=== PATIENT | female | born 1975 | race Caucasian/White ===

== ENCOUNTER 2018-10-21 11:44 | Emergency (ER) | payer BC, SELFPAY ==
[2018-10-21 11:49] VITALS: BP 156/92; PULSE 81; RESP 20; TEMP 36.4; O2SAT 96
--- NOTE | 2018-10-21 12:06 | W.ED.GENAD ---
Discharge Plan Disposition Patient Disposition: HOME Condition: Good Discharge Details Chief Complaint: Sorethroat Clinical Impression: Acute pharyngitis Primary Care Provider: Jessica Morrissey ED Provider: Radu Sterling Home Meds and New Rx's Prescriptions: No Action prednisone 20 MG tablet 40 mg PO DAILY Qty: 10 RF: 0 omeprazole 40 MG capsule,delayed release(DR/EC) 40 mg PO BID Qty: 60 RF: 5 amoxicillin 500 MG tablet 1,000 mg PO Q12H Qty: 40 RF: 0 benzonatate 100 MG capsule 100 - 200 mg PO TID PRN30 Days Qty: 30 RF: 0 alprazolam 0.5 MG tablet,disintegrating 0.5 mg PO HS Qty: 30 RF: 5 Discharge Instructions Instructions: Pharyngitis (ED) Stand Alone Forms: Work Release Referrals: [facility] Emergency Dept. [Outside] - Return if symptoms worsen Discharge Data Discharge Date/Time-TO BE ENTERED AT DEPARTURE: 10/21/18 12:15 Medical Decision Making Negative strep test. Pt advised to get plenty of rest and fluids. Will provide work note for a couple days while culture pending. We discussed abscess not visualized on exam. If her symptoms worsen she agreed to return. Otherwise she will f/u with pcp as previously planned. HPI General Date/Time Provider Initiated Documentation: 10/21/18 11:56. Limitations to Documentation: no limitations. Information obtained by: patient. History of Present Illness 43 year old F presents to the emergency department with the chief complaint of sore throat, HPI Narrative: 43 y/o female here with c/o sore throat and concerned for strep throat. For the last few days she has experienced sore throat that worsens at night. Slight runny nose. 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 She is concerned she may have strep and may expose others. She tells me it hurts to swallow but is able to swallow. Related Data Home Medications Medication Instructions Recorded Confirmed prednisone 40 mg PO DAILY #10 tab-cap 01/23/18 omeprazole 40 mg PO BID #60 tab-cap 02/27/18 amoxicillin 1,000 mg PO Q12H #40 tab-cap 03/01/18 alprazolam 0.5 mg PO HS #30 tab-cap 06/28/18 benzonatate 100 - 200 mg PO TID PRN 30 Days 06/28/18 #30 tab-cap Previous Rx's Medication Instructions Recorded prednisone 40 mg PO DAILY #10 tab-cap 01/23/18 omeprazole 40 mg PO BID #60 tab-cap 02/27/18 amoxicillin 1,000 mg PO Q12H #40 tab-cap 03/01/18 alprazolam 0.5 mg PO HS #30 tab-cap 06/28/18 Allergies Allergy/AdvReac Type Severity Reaction Status Date / Time No Known Drug Allergies Allergy Unverified 03/26/17 13:40 General Stated Complaint: Sorethroat BALBIR: 4 Review of Systems Eyes Reports system reviewed and no additional complaints, except as docu ENT Reports nasal discharge and Reports sore throat Cardiovascular Reports system reviewed and no additional complaints, except as docu Respiratory Reports system reviewed and no additional complaints, except as docu Gastrointestinal Reports system reviewed and no additional complaints, except as docu Integumentary/Breasts Reports system reviewed and no additional complaints, except as docu PFSH Abnormal uterine bleeding Hypothyroid Family History Mother No problems noted. Father No problems noted. Maternal Aunt Neoplasm Diagnostic Laproscopy (~1988) Excision, Lipoma Ligation of fallopian tube (~2002) Family History Mother No problems noted. Father No problems noted. Maternal Aunt Neoplasm Medical History Abnormal uterine bleeding Hypothyroid Social History Smoking/Tobacco Use Status: Never Surgical History Diagnostic Laproscopy (~1988) Excision, Lipoma Ligation of fallopian tube (~2002) Social History Smoking/Tobacco Use Status: Never Exam Const General: cooperative, healthy appearing and comfortable Nutritional Appearance: average body habitus Orientation: alert, awake and oriented x3 HENMT Head: atraumatic Ears: hearing grossly normal bilaterally, external ears normal and TM's normal bilaterally General nose exam: external nose normal and nares normal Mouth: oral mucosae normal, lip normal, tongue normal, moist mucous membranes, no drooling and no trismus Throat: abnormal tonsil (enlarged) on the right, posterior oropharynx abnormal and postnasal drainage Eyes General: appearance normal, both eyes and all related structures Neck Neck: normal visual inspection, full ROM and lymphadenopathy (right) Resp Effort & Inspection: normal respiratory effort Auscultation: clear to auscultation bilaterally Cardio Rate: regular rate Rhythm: regular rhythm Heart Sounds: no murmurs Extrem General: full ROM and normal capillary refill Course Vital Signs Temperature 36.4 C L 10/21/18 11:49 Pulse 81 10/21/18 11:49 Respiratory Rate 20 10/21/18 11:49 Blood Pressure 156/92 H 10/21/18 11:49 Pulse Oximetry 96 10/21/18 11:49 Temperature 36.4 C L 10/21/18 11:49 Temperature Source Temporal Artery Scan 10/21/18 11:49 Pulse 81 10/21/18 11:49 Respiratory Rate 20 10/21/18 11:49 Respiratory Effort Non-Labored 10/21/18 11:49 Blood Pressure 156/92 H 10/21/18 11:49 Blood Pressure Position Sitting 10/21/18 11:49 Pulse Oximetry 96 10/21/18 11:49 Oxygen Delivery Method Room Air 10/21/18 11:49 Oxygen Flow Rate 0 10/21/18 11:49 Pain Level 7 10/21/18 11:49 Lab/Test Results Lab/Test Results: POC Strep Test-[facility](Rapid) Start: 10/21/18 12:05 Freq: Status: Active Protocol: Document 10/21/18 12:05 CDG (Rec: 10/21/18 12:06 CD [id number]) Strep test-[facility](Rapid)-POC POC-Strep test-[facility] (Rapid) Negative POC-Strep test-[facility] (Rapid) Negative
--- NOTE | 2018-10-21 12:09 | ED.GENADUL_ITS ---
Discharge Plan Disposition Patient Disposition: HOME Condition: Good Discharge Details Chief Complaint: Sorethroat Clinical Impression: Acute pharyngitis Primary Care Provider: Jessica Morrissey ED Provider: Radu Sterling Home Meds and New Rx's Prescriptions: No Action prednisone 20 MG tablet 40 mg PO DAILY Qty: 10 RF: 0 omeprazole 40 MG capsule,delayed release(DR/EC) 40 mg PO BID Qty: 60 RF: 5 amoxicillin 500 MG tablet 1,000 mg PO Q12H Qty: 40 RF: 0 benzonatate 100 MG capsule 100 - 200 mg PO TID PRN30 Days Qty: 30 RF: 0 alprazolam 0.5 MG tablet,disintegrating 0.5 mg PO HS Qty: 30 RF: 5 Discharge Instructions Instructions: Pharyngitis (ED) Stand Alone Forms: Work Release Referrals: [facility] Emergency Dept. [Outside] - Return if symptoms worsen Discharge Data Discharge Date/Time-TO BE ENTERED AT DEPARTURE: 10/21/18 12:15 Medical Decision Making Negative strep test. Pt advised to get plenty of rest and fluids. Will provide work note for a couple days while culture pending. We discussed abscess not visualized on exam. If her symptoms worsen she agreed to return. Otherwise she will f/u with pcp as previously planned. HPI General Date/Time Provider Initiated Documentation: 10/21/18 11:56 . Limitations to Documentation: no limitations . Information obtained by: patient . History of Present Illness 43 year old F presents to the emergency department with the chief complaint of sore throat, HPI Narrative: 43 y/o female here with c/o sore throat and concerned for strep throat. For the last few days she has experienced sore throat that worsens at night. Slight runny nose. 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 She is concerned she may have strep and may expose others. She tells me it hurts to swallow but is able to swallow. Related Data Home Medications Medication Instructions Recorded Confirmed prednisone 40 mg PO DAILY #10 tab-cap 01/23/18 omeprazole 40 mg PO BID #60 tab-cap 02/27/18 amoxicillin 1,000 mg PO Q12H #40 tab-cap 03/01/18 alprazolam 0.5 mg PO HS #30 tab-cap 06/28/18 benzonatate 100 - 200 mg PO TID PRN 30 Days 06/28/18 #30 tab-cap Previous Rx's Medication Instructions Recorded prednisone 40 mg PO DAILY #10 tab-cap 01/23/18 omeprazole 40 mg PO BID #60 tab-cap 02/27/18 amoxicillin 1,000 mg PO Q12H #40 tab-cap 03/01/18 alprazolam 0.5 mg PO HS #30 tab-cap 06/28/18 Allergies Allergy/AdvReac Type Severity Reaction Status Date / Time No Known Drug Allergies Allergy Unverified 03/26/17 13:40 General Stated Complaint: Sorethroat BALBIR: 4 Review of Systems Eyes Reports system reviewed and no additional complaints, except as docu ENT Reports nasal discharge and Reports sore throat Cardiovascular Reports system reviewed and no additional complaints, except as docu Respiratory Reports system reviewed and no additional complaints, except as docu Gastrointestinal Reports system reviewed and no additional complaints, except as docu Integumentary/Breasts Reports system reviewed and no additional complaints, except as docu PFSH Abnormal uterine bleeding Hypothyroid Family History Mother No problems noted. Father No problems noted. Maternal Aunt Neoplasm Diagnostic Laproscopy (~1988) Excision, Lipoma Ligation of fallopian tube (~2002) Family History Mother No problems noted. Father No problems noted. Maternal Aunt Neoplasm Medical History Abnormal uterine bleeding Hypothyroid Social History Smoking/Tobacco Use Status: Never Surgical History Diagnostic Laproscopy (~1988) Excision, Lipoma Ligation of fallopian tube (~2002) Social History Smoking/Tobacco Use Status: Never Exam Const General: cooperative, healthy appearing and comfortable Nutritional Appearance: average body habitus Orientation: alert, awake and oriented x3 HENMT Head: atraumatic Ears: hearing grossly normal bilaterally, external ears normal and TM's normal bilaterally General nose exam: external nose normal and nares normal Mouth: oral mucosae normal, lip normal, tongue normal, moist mucous membranes, no drooling and no trismus Throat: abnormal tonsil (enlarged) on the right, posterior oropharynx abnormal and postnasal drainage Eyes General: appearance normal, both eyes and all related structures Neck Neck: normal visual inspection, full ROM and lymphadenopathy (right) Resp Effort & Inspection: normal respiratory effort Auscultation: clear to auscultation bilaterally Cardio Rate: regular rate Rhythm: regular rhythm Heart Sounds: no murmurs Extrem General: full ROM and normal capillary refill Course Vital Signs Temperature 36.4 C L 10/21/18 11:49 Pulse 81 10/21/18 11:49 Respiratory Rate 20 10/21/18 11:49 Blood Pressure 156/92 H 10/21/18 11:49 Pulse Oximetry 96 10/21/18 11:49 Temperature 36.4 C L 10/21/18 11:49 Temperature Source Temporal Artery Scan 10/21/18 11:49 Pulse 81 10/21/18 11:49 Respiratory Rate 20 10/21/18 11:49 Respiratory Effort Non-Labored 10/21/18 11:49 Blood Pressure 156/92 H 10/21/18 11:49 Blood Pressure Position Sitting 10/21/18 11:49 Pulse Oximetry 96 10/21/18 11:49 Oxygen Delivery Method Room Air 10/21/18 11:49 Oxygen Flow Rate 0 10/21/18 11:49 Pain Level 7 10/21/18 11:49 Lab/Test Results Lab/Test Results: POC Strep Test-[facility](Rapid) Start: 10/21/18 12: 05 Freq: Status: Active Protocol: Document 10/21/18 12:05 CDG (Rec: 10/21/18 12:06 CD [id number]) Strep test-[facility](Rapid)-POC POC-Strep test-[facility] (Rapid) Negative POC-Strep test-[facility] (Rapid) Negative
[2018-10-21 12:15] VITALS: BP 156/92; PULSE 81; RESP 20; TEMP 36.4; O2SAT 96
== END 2018-10-21 12:15 | disposition home or self-care (01) ==
PROVIDERS: Emergency Provider Nurse Practitioner Family; PCP Nurse Practitioner Gerontology
DX: J02.9 Acute pharyngitis, unspecified (principal)
CPT/HCPCS: 87880; 99282; 87081

== ENCOUNTER 2018-10-23 04:59 | Emergency (ER) | payer BC, SELFPAY ==
[2018-10-23 05:01] VITALS: BP 128/93; PULSE 87; RESP 16; TEMP 36.4; O2SAT 97
--- NOTE | 2018-10-23 05:11 | ED.GENADUL_ITS ---
Discharge Plan Disposition Patient Disposition: HOME Condition: Stable Discharge Details Chief Complaint: Sorethroat Clinical Impression: Uvulitis, Pharyngitis Primary Care Provider: Jessica Morrissey ED Provider: Betsy Barlow Home Meds and New Rx's Prescriptions: New azithromycin [Zithromax] 500 mg tablet 500 mg PO DAILY 5 Days Qty: 5 RF: 0 Continue ibuprofen 800 mg Tablet 800 mg PO TID PRNRF: 0 alprazolam 0.5 MG tablet,disintegrating 0.5 mg PO HS PRNRF: 0 Discharge Instructions Instructions: Uvulitis (ED) Additional Instructions: Your strep test was negative again today. This only tests for one particular type of strep throat. You do have a swollen uvula in the back of your throat. Drink plenty of fluids and get plenty of rest. Continue to alternate Tylenol and Motrin as needed and directed for pain. Mainly drink cold drinks and cool or soft foods such as ice cream, popsicles. Avoid hot foods or chips or crackers. If you no improvement in symptoms of the next 2-3 days, you may start the antibiotics. Follow-up with your primary care doctor in 1 week for reevaluation. Return immediately to the emergency department any worsening or new concerning symptoms. Discharge Data Discharge Date/Time-TO BE ENTERED AT DEPARTURE: 10/23/18 05:24 Discharge Physician: Betsy Barlow Medical Decision Making 43yo F with a complaint of sore throat for the past few days, seen here in the ED 2 days ago for same complaint and had negative strep test who presents with persistent sore throat. Pain with swallowing liquids and solids. No fever, neck pain or headache. Patient has an edematous uvula with mild erythema. Uvula is midline. No tonsillar edema, erythema, exudates, abscess. No submandibular swelling, no drooling, no trismus. Lungs clear to auscultation. Repeat rapid strep test negative. Discussed with patient that uvulitis is likely viral and recommend continued fluids, rest. Due to pain with swallowing we will give a dose of Decadron. Patient also given a prescription for Zithromax if symptoms do not improve or worsen over the next 2-3 days. She is instructed to follow-up with primary care doctor and return here with any worsening symptoms. HPI General Mode of arrival: ambulatory . Date/Time Provider Initiated Documentation: 10/23/18 05:10 . Limitations to Documentation: no limitations . Information obtained by: patient . HPI Narrative: Pt is a 43yo F who presents to the ED w/ a c/o sore throat for the past few days. Patient was seen here on Sunday and had a negative strep test and was discharged home. Patient states her throat is still sore and she feels like she is having difficulty with swallowing liquids and solids due to pain. She denies any known fever. She has been taking Motrin and Tylenol for pain. She denies any posterior neck pain or headache. Related Data Home Medications Medication Instructions Recorded Confirmed alprazolam 0.5 mg PO HS PRN 10/23/18 10/23/18 azithromycin [Zithromax] 500 mg PO DAILY 5 Days #5 tab 10/23/18 ibuprofen 800 mg PO TID PRN 10/23/18 10/23/18 Previous Rx's Medication Instructions Recorded azithromycin [Zithromax] 500 mg PO DAILY 5 Days #5 tab 10/23/18 Allergies Allergy/AdvReac Type Severity Reaction Status Date / Time No Known Drug Allergies Allergy Unverified 10/23/18 05:05 General Stated Complaint: Sorethroat BALBIR: 4 Review of Systems Review of Systems All systems reviewed & are unremarkable except as noted in HPI and below Constitutional Reports as per HPI, Denies chills and Denies fever(s) Eyes Denies blurry vision ENT Denies dizziness, Reports sore throat and Denies throat swelling Cardiovascular Denies chest pain and Denies dyspnea Respiratory Denies dyspnea Gastrointestinal Denies abdominal pain, Denies diarrhea and Denies vomiting Genitourinary Denies hematuria and Denies dysuria Musculoskeletal Denies back pain and Denies numbness Integumentary/Breasts Denies lesions and Denies rash Neurologic Denies dizziness and Denies numbness Allergic/Immunologic Denies throat swelling PFSH Abnormal uterine bleeding Hypothyroid Family History Mother No problems noted. Father No problems noted. Maternal Aunt Neoplasm History of bilateral tubal ligation (Acute) Diagnostic Laproscopy (~1988) Excision, Lipoma Ligation of fallopian tube (~2002) Family History Mother No problems noted. Father No problems noted. Maternal Aunt Neoplasm Medical History Abnormal uterine bleeding Hypothyroid Social History Smoking/Tobacco Use Status: Never Surgical History Diagnostic Laproscopy (~1988) Excision, Lipoma Ligation of fallopian tube (~2002) Social History Smoking/Tobacco Use Status: Never Exam Const General: cooperative, healthy appearing and no acute distress HENMT Head: normal to inspection Ears: hearing grossly normal bilaterally General nose exam: external nose normal Face and sinus: normal facial exam and sinuses nontender Mouth: oral mucosae normal Teeth and gingiva: dentition normal Throat: uvula midline, uvular edema and other (No tonsillar edema or exudates. Minimal posterior pharyngeal erythema.) Eyes General: appearance normal, both eyes and all related structures Pupils: PERRL EOM: EOM intact bilaterally Neck Neck: normal visual inspection and No submandibular swelling Lymphatic: no lymphadenopathy noted Chest Chest: normal inspection of the chest and no tenderness Resp Effort & Inspection: normal respiratory effort and able to speak in complete sentences Auscultation: clear to auscultation bilaterally Cardio Rate: regular rate Rhythm: regular rhythm Skin General skin exam: no rashes or lesions noted Neuro General: alert, awake and oriented x3 Cognition: normal cognition Speech: speech normal Motor: muscle tone normal throughout Sensory Exam: no sensory deficits noted Extrem General: normal to inspection and full ROM Psych Appearance: grossly normal Mental Status: mental status grossly normal Speech and Movement: speech and movement normal Affect: normal affect Course Vital Signs Temperature 97.5 F L 10/23/18 05:01 Pulse 87 10/23/18 05:01 Respiratory Rate 16 10/23/18 05:01 Blood Pressure 128/93 H 10/23/18 05:01 Pulse Oximetry 97 10/23/18 05:01 Temperature 97.5 F L 10/23/18 05:01 Temperature Source Skin 10/23/18 05:01 Pulse 87 10/23/18 05:01 Respiratory Rate 16 10/23/18 05:01 Respiratory Effort Non-Labored 10/23/18 05:03 Blood Pressure 128/93 H 10/23/18 05:01 Blood Pressure Position Sitting 10/23/18 05:01 Pulse Oximetry 97 10/23/18 05:01 Oxygen Delivery Method Room Air 10/23/18 05:01 Oxygen Flow Rate 0 10/23/18 05:01 Pain Level 10 10/23/18 05:01
[2018-10-23] MEDS: Dexamethasone 10 MG/ML VIAL PO (05:21)
== END 2018-10-23 05:24 | disposition home or self-care (01) ==
LOC: ER 05:28
PROVIDERS: Emergency Provider Physician Assistant; PCP Nurse Practitioner Gerontology
DX: K12.2 Cellulitis and abscess of mouth (principal); J02.9 Acute pharyngitis, unspecified
CPT/HCPCS: 99283; 87081; J1100

== ENCOUNTER 2018-10-30 20:17 | Emergency (ER) | payer BC, SELFPAY ==
[2018-10-30 20:20] VITALS: BP 156/111; PULSE 102; RESP 16; TEMP 36.8; O2SAT 97
--- NOTE | 2018-10-30 21:06 | DI.RAD_ITS ---
SYMPTOM/DIAGNOSIS: COUGH PA AND LATERAL CHEST: The lungs are free of infiltrate. There is no effusion or pneumothorax. The heart is unremarkable. No acute bony abnormality is seen. SUMMARY: No evidence of acute cardiopulmonary disease.
--- NOTE | 2018-10-30 21:06 | DI.CT_ITS ---
SYMPTOMS/DIAGNOSIS: HEADACHE, ? MENINGITIS CRANIAL CT: This is a noncontrast enhanced study. There is no evidence of an intra/extra- axial hemorrhage. There is no evidence of edema, or a mass or a fluid collection. There is no evidence of a skull fracture. There is no evidence of sinusitis or mastoid effusion. No suspicious soft tissue lesions are seen. SUMMARY: There is no acute intracranial abnormality.
--- NOTE | 2018-10-30 21:17 | ED.GENADUL_ITS ---
Discharge Plan Disposition Patient Disposition: HOME Condition: Good Discharge Details Chief Complaint: Nk/Back Pain Clinical Impression: Muscle spasms of neck, Cough Primary Care Provider: Javi Centeno ED Provider: Wally Burger Meds and New Rx's Prescriptions: New methocarbamol 500 mg tablet 1,000 mg PO QID Qty: 30 RF: 0 hydrocodone-homatropine 5-1.5 mg tablet 1 tab PO Q6H PRN (Reason: cough) Qty: 14 RF: 0 Continued ibuprofen 800 mg Tablet 800 mg PO TID PRNRF: 0 alprazolam 0.5 MG tablet,disintegrating 0.5 mg PO HS PRNRF: 0 No Action hydrocodone-homatropine 5-1.5 mg tablet 1 tab PO Q6H MDD 4 tabs PRN (Reason: cough) Qty: 14 RF: 0 albuterol sulfate 90 mcg/actuation HFA aerosol inhaler 2 puff IH Q6H PRN (Reason: shortness of breath or wheezing) Qty: 6.7 RF: 0 Aerochamber Plus Z Stat spacer .ROUTE .MEDSUPPLY Qty: 1 RF: 0 amoxicillin-pot clavulanate [Augmentin] 875-125 mg tablet 1 tab PO BID Qty: 20 RF: 0 fluconazole [Diflucan] 150 mg tablet 150 mg PO ONCE Qty: 1 RF: 0 Discharge Instructions Additional Instructions: Your workup tonight does not show evidence of intracranial bleeding, meningitis, infection in the neck. Please do not take your alprazolam for now. We will put you on a muscle relaxant as well as a cough medication both of which could make you sleepy. Please continue the ibuprofen. Follow-up with primary care preferably tomorrow before the holidays. Return to ED for any neurologic changes, worsening pain, fever, difficulty breathing, other concerns. Referrals: Javi Centeno [Primary Care Provider] - Discharge Data Discharge Date/Time-TO BE ENTERED AT DEPARTURE: 10/31/18 06:35 Medical Decision Making <Alex Arambula NP - Last Filed: 11/02/18 00:26> Patient presenting to the emergency department for chief complaint of sore throat and cough along with cold symptoms for the last 10 days but over the last 3 days she has developed significant neck pain and stiffness. Yesterday evening she reports an episode of some visual aura followed by a headache that started an hour later. Patient denies any injury or trauma. Patient does state low- grade fever that is been persistent throughout her illness around 99-100. Patient has been seen in the emergency department multiple times and by primary care and told it was a viral illness. Patient has significant nuchal rigidity otherwise no other neurological symptoms are noted, patient does have some tonsillary erythema and hypertrophy otherwise no significant exudates, no lymphadenopathy, clear lung sounds, no rash, no cardiac rub or bruit otherwise unremarkable examination. Plan to check labs including blood cultures, chest x- ray and head CT and consideration of lumbar puncture if [place] and influenza are negative. High concern for meningitis given nuchal rigidity and cold symptoms for 10 days with report of low-grade fever. Pending results patient given morphine. Review of labs shows leukocytosis, mild hyponatremia, otherwise nondiagnostic labs. CBC does show some leukocytosis but otherwise stable. CT imaging and chest imaging shows no acute findings. Patient did consent to having lumbar puncture performed and consent was signed. Both myself and Dr. Burger attempted lumbar puncture and were unable to successfully obtain spinal fluid so anesthesia was consulted for assistance. Patient tolerated attempts appropriately pending anesthesia. Patient was given 2.5 mg diazepam to help with muscle relaxation. Pending anesthesia, lumbar puncture, and results care patient was handed over to Dr. Burger for review of results, disposition, and treatment as needed. <Wally Burger MD - Last Filed: 10/31/18 06:20> Patient initially seen by nurse practitioner Tyesha. Workup ensued and included chest x-ray, head CT, laboratory studies. The mono and influenza screens were negative. Laboratory studies unremarkable. Head CT negative. Chest x-ray negative. Lumbar puncture was attempted both by SHONNA Arambula as well as myself without success. Anesthesia was called and asked to perform LP. Anesthesia able to successfully obtain CSF. This was sent to the lab. Morphine had helped the patient initially. Valium was given as well for some muscle relaxation. Did not seem to work as well as the morphine so another dose of mor phine was given. CSF has normal glucose and protein. Cell count with 3 white cells, 1 red cell, no xanthochromia. This is a negative tap. Patient continues to have significant neck pain. Symptoms started a week ago. Initially sore throat. Throat is not as sore now. She has worsening cough but has already been on Zithromax. She is not having difficulty breathing. She does have posterior neck pain. I elected to CT her neck with IV contrast as she was still having significant pain. CT neck unremarkable other than degenerative change of the spine mildly prominent thyroid. At this point patient will be discharged home. We will start her on Robaxin as a muscle relaxer. Will continue ibuprofen for anti- inflammatory component. We will give Hycodan for cough which will also likely help with pain. We will have her follow-up with primary care preferably tomorrow if possible before the holidays to see how she is doing. Return to emergency department if worsening pain, difficulty breathing, neurologic changes, fever. Lab Data Lab results reviewed: Yes I reviewed the patient's lab results. HPI <Alex Arambula NP - Last Filed: 11/02/18 00:26> General Mode of arrival: ambulatory . Date/Time Provider Initiated Documentation: 10/30/18 20:43 . Limitations to Documentation: no limitations . Information obtained by: patient, RN notes reviewed and old records reviewed . History of Present Illness 43 year old F presents to the emergency department with the chief complaint of Cold-like symptoms, stiff neck, described as severe, with intensity rated at 10. Quality is described as aching and sharp, and is localized to the head and neck. Patient started experiencing this day(s) (10) and it has been constant. No relieving factors improve symptom(s), No exacerbating factors reported . Patient did receive the following treatments prior to arrival, NSAID Related Data Home Medications Medication Instructions Recorded Confirmed alprazolam 0.5 mg PO HS PRN 10/23/18 10/30/18 ibuprofen 800 mg PO TID PRN 10/23/18 10/30/18 hydrocodone-homatropine 1 tab PO Q6H PRN #14 tab 10/31/18 methocarbamol 1,000 mg PO QID #30 tab 10/31/18 albuterol sulfate HFA 90 2 puff IH Q6H PRN #6.7 gm 11/01/18 11/01/18 mcg/actuation aerosol inhaler amoxicillin 875 mg-potassium 1 tab PO BID #20 tab 11/01/18 11/01/18 clavulanate 125 mg tablet fluconazole 150 mg tablet 150 mg PO ONCE #1 tab 11/01/18 11/01/18 hydrocodone-homatropine 5 mg-1.5 1 tab PO Q6H PRN #14 tab MDD 4 tabs 11/01/18 11/01/18 mg tablet inhalational spacing device #1 each 11/01/18 11/01/18 Previous Rx's Medication Instructions Recorded hydrocodone-homatropine 1 tab PO Q6H PRN #14 tab 10/31/18 methocarbamol 1,000 mg PO QID #30 tab 10/31/18 albuterol sulfate HFA 90 2 puff IH Q6H PRN #6.7 gm 11/01/18 mcg/actuation aerosol inhaler amoxicillin 875 mg-potassium 1 tab PO BID #20 tab 11/01/18 clavulanate 125 mg tablet fluconazole 150 mg tablet 150 mg PO ONCE #1 tab 11/01/18 hydrocodone-homatropine 5 mg-1.5 1 tab PO Q6H PRN #14 tab MDD 4 tabs 11/01/18 mg tablet inhalational spacing device #1 each 11/01/18 Allergies Allergy/AdvReac Type Severity Reaction Status Date / Time No Known Drug Allergies Allergy Unverified 10/30/18 20:34 General Stated Complaint: Nk/Back Pain BALBIR: 3 Review of Systems <Alex Arambula NP - Last Filed: 11/02/18 00:26> Constitutional Reports chills, Reports fever(s), Reports headache(s) and Reports malaise Eyes Denies blurry vision and Reports seeing flashes (Now result) ENT Reports as per HPI, Denies dizziness, Denies otalgia, Reports headache(s), Reports nasal congestion, Reports neck pain, Reports sore throat and Denies throat swelling Cardiovascular Denies chest pain, Denies syncope and Denies dyspnea Respiratory Reports cough and Denies dyspnea Gastrointestinal Denies abdominal pain, Reports nausea and Denies vomiting Musculoskeletal Denies joint swelling and Reports neck pain Integumentary/Breasts Denies rash Neurologic Denies confusion, Denies dizziness, Denies syncope, Reports headache(s) and D enies seizure-like activity Psychiatric Denies confusion Allergic/Immunologic Denies throat swelling PFSH <Alex Arambula NP - Last Filed: 11/02/18 00:26> Medical History Abnormal uterine bleeding Hypothyroid Surgical History History of bilateral tubal ligation (Acute) Diagnostic Laproscopy (~1988) Excision, Lipoma Ligation of fallopian tube (~2002) Family History Mother No problems noted. Father No problems noted. Maternal Aunt Neoplasm Social History Smoking/Tobacco Use Status: Never Exam <Alex Arambula NP - Last Filed: 11/02/18 00:26> Const General: cooperative, comfortable and no acute distress Orientation: alert and awake HENMT Head: normal to inspection, normocephalic and atraumatic Ears: hearing grossly normal bilaterally and TM's normal bilaterally General nose exam: external nose normal Face and sinus: normal facial exam Mouth: oral mucosae normal, no drooling, no muffled voice and no trismus Throat: uvula midline and abnormal tonsil bilaterally erythema Neck Neck: normal visual inspection, full ROM, no lymphadenopathy, no meningeal signs, trachea midline and supple Resp Effort & Inspection: normal respiratory effort, able to speak in complete sentences and cough Quality of cough: dry Auscultation: clear to auscultation bilaterally Cardio Rate: regular rate Rhythm: regular rhythm Heart Sounds: S1 normal, S2 normal, normal S1 and S2, no click, no gallops, no murmurs and no rubs Skin General skin exam: no rashes or lesions noted and dry skin (warm) Neuro General: alert, awake, oriented x3, gait normal and moves all extremities Cognition: normal cognition Speech: speech normal Course <Alex Arambula NP - Last Filed: 11/02/18 00:26> Vital Signs Temperature 36.8 C 10/30/18 20:20 Pulse 102 H 10/30/18 20:20 Respiratory Rate 16 10/30/18 20:20 Blood Pressure 156/111 H 10/30/18 20:20 Pulse Oximetry 97 10/30/18 20:20 Temperature 36.8 C 10/30/18 20:20 Temperature Source Skin 10/30/18 20:20 Pulse 102 H 10/30/18 20:20 Respiratory Rate 16 10/30/18 20:20 Blood Pressure 156/111 H 10/30/18 20:20 Blood Pressure Position Sitting 10/30/18 20:20 Pulse Oximetry 97 10/30/18 20:20 Oxygen Delivery Method Room Air 10/30/18 20:20 Oxygen Flow Rate 0 10/30/18 20:20 Pain Level 10 10/30/18 20:20 Lab/Test Results Lab/Test Results: 10/30/18 21:06 Blood Blood Culture - Pending 10/30/18 21:06 Blood Blood Culture - Pending
[2018-10-30] MEDS: MORPHine 10 MG/ML VIAL 4 MG IVP (21:47)
[2018-10-30] MEDS: Normal Saline 1,000 ML 1000 ML IV (21:48)
[2018-10-30] MEDS: Ondansetron 4 MG/2 ML VIAL IVP (21:48)
[2018-10-30 22:27] LABS: ALT 40 U/L (12-78); AST 25 U/L (15-37); Alkaline Phosphatase 72 U/L (46-116); Anion Gap 12.1 mmol/L (3-11); BUN 9 mg/dL (7-18); Bilirubin, Total 0.8 mg/dL (0.2-1.0); CO2 25.9 mmol/L (21.0-32.0); CREATININE 0.58 mg/dL (0.55-1.02); Calcium 9.6 mg/dL (8.5-10.1); Chloride 97 mmol/L (98-107); Glucose 109 mg/dL (70-100); Potassium 3.9 mmol/L (3.5-5.1); Sodium 135 mmol/L (136-145); Total Protein 8.2 g/dL (6.4-8.2)
[2018-10-30 22:31] VITALS: BP 132/75; PULSE 92; RESP 16; TEMP 37.1; O2SAT 92
[2018-10-30 22:33] LABS: Mono Screening Negative (Negative)
[2018-10-30 22:41] LABS: Abs Immature Grans 0.07 k/cumm (0.0-0.09); Absolute Basophil Count 0.04 k/cumm (0.0-0.2); Absolute Eosinophil Count 0.14 k/cumm (0.0-0.7); Absolute Lymphocyte Count 3.24 k/cumm (1.2-3.4); Absolute Neutrophil Count 8.26 k/cumm (1.2-6.7); Basophils % 0.3; Eosinophils % 1.1; HCT 44.5 % (36.0-46.0); HGB 15.4 g/dL (12.0-15.5); Immature Grans % 0.5; Mean Corp. HGB Concentration 34.6 g/dL (32.0-36.0); Mean Corpuscular Hemoglobin 31.6 pg (27.0-33.0); Mean Corpuscular Volume 91.2 fL (80-95); Mean Platelet Volume 10.6 fL (8.0-11.0); Monocytes % 9.3; Neutrophils % 63.8; Platelet Count 277 x1000/uL (130-400); RBC 4.88 m/cumm (4.00-5.20); RBC Distribution Width 12.4 % (11.7-14.6); White Blood Cell Count 12.94 k/cumm (4.4-10.8)
--- NOTE | 2018-10-30 22:59 | DI.VRAD_ITS ---
EXAM: CT Head Without Contrast EXAM DATE/TIME: 10/30/2018 9:10 PM CLINICAL HISTORY: 43 years old, female; Pain; Headache; Headache not specified; Patient HX: ? Meningitis, sore neck TECHNIQUE: Axial computed tomography images of the head/brain without contrast. Coronal and sagittal reformatted images were created and reviewed. COMPARISON: No relevant prior studies available. FINDINGS: Brain: No hemorrhage. No significant white matter disease. No edema. Ventricles: No ventriculomegaly. Bones/joints: No acute fracture. Sinuses: No acute sinusitis. Mastoid air cells: No mastoid effusion. Soft tissues: No suspicious lesions. IMPRESSION: No acute intracranial findings. Dictated and Authenticated by: Alivia Calloway MD. Ordering:ALESSANDRO Johnson MD
--- NOTE | 2018-10-30 22:59 | DI.VRAD_ITS ---
EXAM: XR Chest, 2 Views EXAM DATE/TIME: 10/30/2018 9:10 PM CLINICAL HISTORY: 43 years old, female; Signs and symptoms; Cough TECHNIQUE: XR of the chest, 2 views. COMPARISON: CR CHEST 2 VIEWS PA,LAT 02/28/2018 11:10 AM FINDINGS: Lungs: No consolidation. Pleural space: No pleural effusion. No pneumothorax. Heart/Mediastinum: No cardiomegaly. Bones/joints: No acute fracture. IMPRESSION: No acute cardiopulmonary pathology. Dictated and Authenticated by: Alivia Calloway MD. Ordering:ALESSANDRO Johnson MD
[2018-10-31 00:12] LABS: Bilirubin Negative (Negative); Blood Negative (Negative); Clarity Clear; Glucose Negative (Negative); Ketones 15 mg/dL (Negative); Leukocyte Esterase Negative (Negative); Nitrite Negative (Negative); Urobilinogen 0.2 EU/dL (Up TO 0.2); pH 6.5 (5-8)
[2018-10-31 02:48] LABS: Glucose (CSF) 68 mg/dL (40-70); Total Protein (CSF) 34 mg/dL (15-45)
[2018-10-31 03:19] LABS: Tube # 4
[2018-10-31 03:20] LABS: Clarity Clear; Xanthochromia Absent
[2018-10-31 03:21] LABS: RBC 1 /mm3 (0-5); WBC 3 /mm3 (0-5)
--- NOTE | 2018-10-31 04:40 | DI.CT_ITS ---
SYMPTOM/DIAGNOSIS: SEVEE NECK NECK CT: The study was carried out according to the usual protocol with intravenous administration of 100 cc Omnipaque 350. The nasopharynx is unremarkable. There is no evidence of a mass or inflammation. The oral pharynx is unremarkable. The hypopharynx is normal. The larynx and trachea are unremarkable. The retropharyngeal space is unremarkable. The submandibular and parotid glands appear intact. SUMMARY: There is mild prominence of the thyroid. No mass is seen. The soft tissues are unremarkable with no evidence of swelling. Posterior musculature and soft tissues are relatively unremarkable without evidence of obvious inflammatory changes or a fluid collection or mass. There are no acute vascular findings on this CT examination.
--- NOTE | 2018-10-31 05:16 | DI.VRAD_ITS ---
EXAM: CT Neck With Contrast EXAM DATE/TIME: 10/31/2018 4:42 AM CLINICAL HISTORY: 43 years old, female; Pain; Neck pain; Patient HX: Severe posterior neck pain TECHNIQUE: Axial computed tomography images of the neck with intravenous contrast. All CT scans at this facility use at least one of these dose optimization techniques: automated exposure control; mA and/or kV adjustment per patient size (includes targeted exams where dose is matched to clinical indication); or iterative reconstruction. Coronal and sagittal reformatted images were created and reviewed. CONTRAST: 100 ml of Omnipaque 350 administered intravenously. COMPARISON: No relevant prior studies available. FINDINGS: Nasopharynx: Unremarkable. No mass or inflammation. Oropharynx: Unremarkable. No significant tonsillar enlargement. No peritonsillar abscess. Hypopharynx: Unremarkable. Larynx: Unremarkable. Normal epiglottis. Trachea: Unremarkable. Retropharyngeal space: Unremarkable. Submandibular/Parotid glands: Unremarkable. Glands are normal in size. Thyroid: Thyroid mildly prominent in size without discrete mass. Homogeneous enhancement. No calcifications. Bones/joints: Advanced degenerative disc disease C5- 6 and to lesser extent C4-5. Minimal central canal narrowing without critical central stenosis. No severe neural foraminal encroachment demonstrated. No fracture or subluxation. Soft tissues: Unremarkable. No significant soft tissue swelling. Posterior musculature and soft tissues relatively unremarkable without obvious inflammation, fluid collection or mass. Vasculature: No acute findings. No significant stenosis or occlusions. Lymph nodes: Unremarkable. No lymphadenopathy. Shotty non-pathologically enlarged level II and III lymph nodes on each side. Lung apices: Minimal dependent atelectasis. IMPRESSION: 1. Relatively unremarkable CT soft tissue neck with contrast. 2. Nonemergent findings as described above. Dictated and Authenticated by: Grant Reyes MD. Ordering:FRANCHESKA Lo MD
[2018-10-31] MEDS: Omnipaque 350 MG/ML 100 ML BTL IJ (06:15)
[2018-10-31] MEDS: Methocarbamol 500 MG TAB 1000 MG PO (06:29)
[2018-10-31 07:04] VITALS: BP 132/75; PULSE 92; RESP 16; TEMP 37.1; O2SAT 92
[2018-10-31 08:27] LABS: Differential CSF: NOT PERFORMED
== END 2018-10-31 06:35 | disposition home or self-care (01) ==
PROVIDERS: Nurse Practitioner Family; Emergency Provider Emergency Medicine; PCP Family Medicine
DX: M62.838 Other muscle spasm (principal); R05 Cough; R51 Headache
CPT/HCPCS: 36415; 62270; 70491; 80053; 81025; 82945; 87040; 87449; 89050; 89051; 96361; 96374; 96375; 96376; 99285; 70450; 71046; 81003; 84157; 85025; 86308; 87070; 87205; J2270; J2405; J3490

== ENCOUNTER 2020-09-24 09:29 | Outpatient (CLI) | payer BC, SELFPAY ==
[2020-09-28 23:59] LABS: Patient Race White; SARS-CoV-2 RNA Undetected (Undetected); SARS-CoV-2 Specimen Source Nasal
== END 2020-09-24 09:49 ==
PROVIDERS: PCP Nurse Practitioner Family; Visit Provider Nurse Practitioner Family
DX: Z11.59 Encounter for screening for other viral diseases (principal)
CPT/HCPCS: U0003

== ENCOUNTER 2021-01-10 16:36 | Outpatient (REF) | payer BC, SELFPAY ==
[2021-01-12 12:25] LABS: COVID-19 RT-PCR UVMMC Result Positive (Negative)
== END 2021-01-10 16:37 | disposition home or self-care (01) ==
LOC: LBN 16:36
PROVIDERS: PCP Nurse Practitioner Family; Visit Provider Family Medicine
DX: Z20.822 Contact with and (suspected) exposure to COVID-19 (principal); R05 Cough
CPT/HCPCS: U0003

== ENCOUNTER 2021-01-14 05:33 | Outpatient (CLI) | payer BC, SELFPAY ==
[2021-01-14 13:22] VITALS: BP 157/104; PULSE 82; RESP 20; TEMP 36.1; O2SAT 95
[2021-01-14] MEDS: Normal Saline 500 ML 30 ML IV (13:37)
[2021-01-14] MEDS: Normal Saline Flush 10 ML SYR IVP (13:37)
[2021-01-14 13:45] VITALS: BP 138/88; PULSE 73; RESP 22; TEMP 36.7; O2SAT 95
[2021-01-14 14:07] VITALS: BP 129/84; PULSE 75; RESP 20; TEMP 36.5; O2SAT 95
[2021-01-14 14:41] VITALS: BP 129/80; PULSE 73; RESP 20; TEMP 36.5; O2SAT 94
[2021-01-14 15:06] VITALS: BP 137/87; PULSE 72; RESP 20; TEMP 36.5; O2SAT 97
== END 2021-01-14 05:34 | disposition home or self-care (01) ==
LOC: INF 05:33
PROVIDERS: PCP Nurse Practitioner Family; Visit Provider Family Medicine
DX: U07.1 COVID-19 (principal)
CPT/HCPCS: 96365

== ENCOUNTER 2021-03-18 01:45 | Outpatient (CLI) | payer BC, SELFPAY ==
[2021-03-19 15:22] LABS: COVID-19 RT-PCR UVMMC Result Positive (Negative)
== END 2021-03-18 01:46 | disposition home or self-care (01) ==
LOC: LBO 01:46
PROVIDERS: PCP Nurse Practitioner Family; Visit Provider Family Medicine
DX: Z20.822 Contact with and (suspected) exposure to COVID-19 (principal)
CPT/HCPCS: U0003

== ENCOUNTER 2023-01-15 13:45 | Emergency (ER) | payer BC, SELFPAY ==
[2023-01-15 13:51] VITALS: BP 169/103; PULSE 88; RESP 18; TEMP 36.7; O2SAT 96
[2023-01-15 14:12] LABS: Bilirubin Negative (Negative); Blood Moderate (Negative); Clarity Sl Cloudy (Clear); Glucose Negative (Negative); Ketones Negative (Negative); Leukocyte Esterase Trace (Negative); Nitrite Positive (Negative); Specific Gravity 1.025 (1.005-1.025); Urobilinogen 0.2 mg/dL (Up to 0.2)
[2023-01-15 14:19] LABS: Bacteria Many HPF (Negative); C & S Indicated? Yes; Casts Negative LPF (Negative); Crystals Negative HPF (Negative); Epithelial Cells Few HPF (Negative); Mucus Negative (Negative)
--- NOTE | 2023-01-15 15:07 | ED.GENADUL_ITS ---
Discharge Plan Disposition Patient Disposition: Home Condition: Stable Discharge Details Clinical Impression: UTI (urinary tract infection) Primary Care Provider: Sera Marcelo ED Provider: Betsy Barlow Home Meds and New Rx's Prescriptions: Continued ibuprofen 800 mg tablet 800 mg PO TID PRN (Reason: back pain) Qty: 120 4RF Discharge Instructions Instructions: Urinary Tract Infection in Women (ED) Additional Instructions: Your urine sample appears consistent with a urinary tract infection. A prescription for antibiotics has been sent electronically to your pharmacy to take as directed until finished. Drink plenty of fluids and get plenty of rest. Alternate tylenol and motrin as needed and directed for pain. You can continue taking ytgl-owe-ouchiqk urinary pain medications such as Azo or phenazopyridine as needed and directed for pain. Follow-up with your primary care doctor in 1 week for reevaluation as needed and for recheck of your blood pressure as it was noted to be high today. Return to the emergency department with any worsening or new concerning symptoms such as persistent fevers, persistent vomiting, worsening pain or any other concerns. Discharge Data Discharge Date/Time-TO BE ENTERED AT DEPARTURE: 01/15/23 15:16 Discharge Physician: Betsy Barlow Medical Decision Making 47-year-old female presents with 7 days of dysuria, urinary frequency and urgency. She did also admit to occasional nausea, pelvic and lower back pain. Patient appears well and nontoxic. Her blood pressure is quite hypertensive at 169/103. She is afebrile. Urine sample obtained prior to my assessment and does appear consistent with UTI. Urine test negative. Discussed with patient that her symptoms of occasional nausea and lower back pain and the duration of her symptoms make her more at risk for possible pyelonephritis which often is treated with a longer course of antibiotics in addition to screening labs and imaging. Patient states she would prefer to start antibiotics for a urinary tract infection and then be reevaluated her primary care doctor. She is declining any labs or imaging at this time. Discussed with patient that as she looks well and is nontoxic-appearing without fever, this is a reasonable plan at this time but to return here immediately if she develops any worsening or new concerning symptoms. A recheck of her blood pressure revealed 170/100. Patient is advised to call her primary care doctor tomorrow for reevaluation within the next week and for recheck of her blood pressure. Advised patient to return here immediately for reevaluation if she has any worsening or new concerning symptoms for consideration for additional work-up including lab work and imaging at that time if indicated. We will send a prescription for Keflex electronically to her pharmacy. Usual and customary return precautions given prior to discharge. Medical Records Medical records reviewed: Yes I reviewed the patient's medical records. Lab Data Lab results reviewed: Yes I reviewed the patient's lab results. Labs: Urine test negative. 01/15/23 14:00 Urine - Reflex from Ua Urine Culture - Pending Laboratory Tests Range/Units 01/15/23 14:00 Urine Color (Yellow) Yellow Urine Clarity (Clear) Sl Cloudy Urine pH (5-8) 7.0 Ur Specific [place] (1.005-1.025) 1.025 Urine Protein (Negative) mg/dL Negative Urine Ketones (Negative) mg/dL Negative Urine Blood (Negative) Moderate H Urine Nitrite (Negative) Positive H Urine Bilirubin (Negative) Negative Urine Urobilinogen (Up to 0.2) mg/dL 0.2 Ur Leukocyte Esterase (Negative) Trace H Urine RBC (0-2) HPF 10-20 H Urine WBC (0-5) HPF 10-20 H Ur Epithelial Cells (Negative) HPF Few Urine Crystals (Negative) HPF Negative Urine Bacteria (Negative) HPF Many Urine Casts (Negative) LPF Negative Urine Mucus (Negative) Negative Ur Culture Indicated? Yes Urine Glucose (Negative) mg/dL Negative HPI General Mode of arrival: ambulatory . Date/Time Provider Initiated Documentation: 01/15/23 14:51 . Limitations to Documentation: no limitations . Information obtained by: patient . HPI Narrative: Patient is a 47-year-old female who presents with dysuria, frequency, urgency for the past 7 days. She states her symptoms feel consistent with a urinary tract infection which she has had in the past. She states she has been taking [id number] phenazopyridine with temporary relief but states overall her symptoms are not improving. She does admit to occasional nausea but denies any vomiting. She denies any known fevers. She states she does have occasional lower pelvic and back pain. Patient states she has not taken any recent antibiotics. Related Data Home Medications Medication Instructions Recorded Confirmed ibuprofen 800 mg tablet 800 mg PO TID PRN back pain #120 03/18/20 01/15/23 tabs Previous Rx's Medication Instructions Recorded ibuprofen 800 mg tablet 800 mg PO TID PRN back pain #120 03/18/20 tabs Allergies Allergy/AdvReac Type Severity Reaction Status Date / Time No Known Drug Allergies Allergy Unverified 01/15/23 13:54 General Stated Complaint: Urinary BALBIR: 4 Review of Systems All systems reviewed & are unremarkable except as noted in HPI and below Constitutional Constitutional: Reports as per HPI, Denies chills and Denies fever(s) Eyes Eyes: Denies blurry vision ENT Ears, Nose, Mouth, and Throat: Denies dizziness, Denies sore throat and Denies throat swelling Cardiovascular Cardiovascular: Denies chest pain and Denies dyspnea Respiratory Respiratory: Denies cough and Denies dyspnea Gastrointestinal Gastrointestinal: Denies abdominal pain, Denies diarrhea, Reports nausea and Denies vomiting Genitourinary Genitourinary: Denies hematuria, Reports dysuria, Reports pelvic pain and Reports urinary urgency Comments: Urinary frequency Musculoskeletal Musculoskeletal: Denies back pain and Denies numbness Integumentary/Breasts Skin/Breast: Denies lesions and Denies rash Neurologic Neurologic: Denies dizziness, Denies localized weakness and Denies numbness Allergic/Immunologic Allergic/Immunologic: Denies throat swelling PFSH All Active Problems (Updated 01/15/23 @ 15:08 by Betsy Barlow DO) UTI (urinary tract infection) (Acute) COVID-19 virus infection (Acute) Positive PCRs 01/19/2021 and 03/18/2021 Abnormal uterine bleeding (Chronic) Mirena IUD placed 09/26/17 Insomnia (Acute) Medical History (Updated 01/15/23 @ 15:08 by Betsy Barlow DO) Generalized anxiety disorder Surgical History History of bilateral tubal ligation (~2002) S/P excision of lipoma (06/18/17) Path confirmed lipoma to right buttock Status post hysteroscopy (09/26/17) With endometrial sampling, polypectomy Family History Mother No problems noted. Father No problems noted. Maternal Aunt Neoplasm BREAST Social History Smoking/Tobacco Use Status: Never Smoking risk assessment performed?: Yes Alcohol Intake: never Drug use: Never Substance use type: does not use Do you feel safe in your relationship?: Yes Exam Const General: cooperative, healthy appearing and no acute distress Orientation: alert, awake and oriented x3 HENMT Head: normal to inspection Mouth: oral mucosae normal Eyes General: appearance normal, both eyes and all related structures Neck Neck: normal visual inspection Resp Effort & Inspection: normal respiratory effort and able to speak in complete sentences Auscultation: clear to auscultation bilaterally Cardio Rate: regular rate Rhythm: regular rhythm GI Inspection: obesity Palpation: soft, no guarding and nontender Auscultation: hypoactive bowel sounds Back/Spine/Pelvis Back: no CVA tenderness Skin General skin exam: no rashes or lesions noted Neuro General: patient alert, patient awake and patient oriented x3 Motor: muscle tone normal throughout Extrem General: normal to inspection and full ROM Psych Appearance: grossly normal Affect: normal affect Course Vital Signs Vital signs: Vital Signs Temperature 98.1 F 01/15/23 13:51 Pulse 88 01/15/23 13:51 Respiratory Rate 18 01/15/23 13:51 Blood Pressure 169/103 H 01/15/23 13:51 Pulse Oximetry 96 01/15/23 13:51 Temperature 98.1 F 01/15/23 13:51 Temperature Source Oral 01/15/23 13:51 Pulse 88 01/15/23 13:51 Respiratory Rate 18 01/15/23 13:51 Respiratory Effort Normal 01/15/23 13:55 Blood Pressure 169/103 H 01/15/23 13:51 Blood Pressure Position Sitting 01/15/23 13:51 Pulse Oximetry 96 01/15/23 13:51 Oxygen Delivery Method Room Air 01/15/23 13:51 Oxygen Flow Rate 0 01/15/23 13:51 Pain Level 3 01/15/23 13:51 Lab/Test Results Lab/Test Results: 01/15/23 14:00 Urine - Reflex from Ua Urine Culture - Pending Laboratory Tests Range/Units 01/15/23 14:00 Urine Color (Yellow) Yellow Urine Clarity (Clear) Sl Cloudy Urine pH (5-8) 7.0 Ur Specific [place] (1.005-1.025) 1.025 Urine Protein (Negative) mg/dL Negative Urine Ketones (Negative) mg/dL Negative Urine Blood (Negative) Moderate H Urine Nitrite (Negative) Positive H Urine Bilirubin (Negative) Negative Urine Urobilinogen (Up to 0.2) mg/dL 0.2 Ur Leukocyte Esterase (Negative) Trace H Urine RBC (0-2) HPF 10-20 H Urine WBC (0-5) HPF 10-20 H Ur Epithelial Cells (Negative) HPF Few Urine Crystals (Negative) HPF Negative Urine Bacteria (Negative) HPF Many Urine Casts (Negative) LPF Negative Urine Mucus (Negative) Negative Ur Culture Indicated? Yes Urine Glucose (Negative) mg/dL Negative
[2023-01-15 15:15] VITALS: BP 177/100; PULSE 79; RESP 20; O2SAT 98
== END 2023-01-15 15:16 | disposition home or self-care (01) ==
PROVIDERS: Student in an Organized Health Care Education/Training Program; Emergency Provider Physician Assistant; PCP Nurse Practitioner Family
DX: N39.0 Urinary tract infection, site not specified (principal); B96.1 Klebsiella pneumoniae [K. pneumoniae] as the cause of diseases classified elsewhere
CPT/HCPCS: 87077; 99283; 81003; 81015; 87086; 87186

== ENCOUNTER 2023-06-04 13:29 | Outpatient (REF) | payer BC, SELFPAY ==
--- NOTE | 2023-06-04 11:30 | PAPFT_PTH ---
PATIENT: Carlton Renteria LOC: [facility] #:[id number] AGE/SX: 47/F ROOM: RE06/04/[address]: AYAD Capone : 1975 BED: DIS: 06/04/2023 SPEC #: [id number] RECD: 06/05/23 12:50 STATUS: YAEL PATEL #: [id number] SOFI: 06/04/23 11:[address]: Sera Marcelo DEPT: [facility] Cytology RECD BY: Anay Graves Tissues: 1 - CX/ENDOCX FOR PAP SMEARS Procedures: PAP THIN PREP/UVM Screening HPV DNA PROBE Comments: [id number]
== END 2023-06-04 13:30 | disposition home or self-care (01) ==
LOC: LBN 13:29
PROVIDERS: PCP Nurse Practitioner Family; Visit Provider Nurse Practitioner Family
DX: Z12.4 Encounter for screening for malignant neoplasm of cervix (principal); Z11.51 Encounter for screening for human papillomavirus (HPV); Z87.410 Personal history of cervical dysplasia
CPT/HCPCS: 88142; 87624

== ENCOUNTER 2023-06-05 04:26 | Outpatient (CLI) | payer BC, SELFPAY ==
[2023-06-05 13:00] LABS: Abs Immature Grans 0.03 10^3/uL (0.0-0.06); Absolute Basophil Count 0.07 10^3/uL (0.0-0.2); Absolute Lymphocyte Count 2.57 10^3/uL (1.2-3.4); Absolute Monocyte Count 0.91 10^3/uL (0.1-0.8); Absolute Neutrophil Count 5.94 10^3/uL (1.2-6.7); Basophils % 0.7; HCT 45.4 % (36.0-46.0); HGB 14.8 g/dL (11.2-15.7); Immature Grans % 0.3; Lymphocytes % 26.7; MCH 29.7 pg (27.0-33.0); MCHC 32.6 % (32.0-36.0); MCV 91 fL (80-95); MPV 10.9 fL (8.0-11.0); Monocytes % 9.5; Neutrophils % 61.8; Platelet Count 212 10^3/uL (130-400); RBC 4.98 10^6/uL (3.93-5.22); RDW 14.1 % (11.7-14.6); RDW-SD 47.1 fL; WBC 9.62 10^3/uL (4.4-10.8)
[2023-06-05 13:18] LABS: Hemoglobin A1C 5.5 % (<5.7)
[2023-06-05 13:27] LABS: ALT 57 U/L (14-59); AST 29 U/L (15-37); Albumin 3.9 g/dL (3.4-5.0); Alkaline Phosphatase 72 U/L (46-116); Anion Gap 4.9 mmol/L (3-11); BUN 12 mg/dL (7-18); Bilirubin, Total 0.7 mg/dL (0.2-1.0); CO2 30.1 mmol/L (21.0-32.0); CREATININE 0.9 mg/dL (0.55-1.02); Calcium 9.1 mg/dL (8.5-10.1); Calculated LDL 165 mg/dL (<100); Chloride 103 mmol/L (98-107); Cholesterol 249 mg/dL (<200); Estimated GFR 80.34 (mL/min/1.73m2); Glucose 115 mg/dL (74-106); HDL Cholesterol 69 mg/dL (40-60); Potassium 4.1 mmol/L (3.5-5.1); Sodium 138 mmol/L (136-145); TSH (W/Ref FT4) 1.85 uIU/mL (0.36-3.74); Total Protein 7.7 g/dL (6.4-8.2); Triglyceride 76 mg/dL (<150)
== END 2023-06-05 04:27 | disposition home or self-care (01) ==
PROVIDERS: PCP Nurse Practitioner Family; Visit Provider Nurse Practitioner Family
DX: Z00.00 Encounter for general adult medical examination without abnormal findings (principal)
CPT/HCPCS: 36415; 80053; 80061; 83036; 84443; 85025

== ENCOUNTER 2023-06-08 00:53 | Outpatient (CLI) | payer BC, SELFPAY ==
--- NOTE | 2023-06-08 07:15 | DI.MAMMO_ITS ---
Exam(s) MAMMO SCREENING EXAM: MAMMO SCREENING CLINICAL HISTORY: screening,Z12.39, BASELINE TECHNIQUE: Bilateral full field digital CC and MLO mammographic images were obtained with 3D tomosyn thesis and utilizing computer aided detection (CAD). COMPARISON: This is a baseline examination. FINDINGS: Masses/Architectural Distortion: There is a 5 mm well-circumscribed nodule in the posterior medial le ft breast seen on the craniocaudad view. No areas of architectural distortion are seen. Microcalcifications: No suspicious pleomorphic-type are seen. Skin Thickening/Nipple Retraction: None. IMPRESSION: 1. 5 mm nodule in the medial left breast posteriorly. 2. Spot compression view and limited left breast ultrasound are requested for further evaluation. BI-RADS Category 0 - Assessment Incomplete: Need additional imaging evaluation Breast Density - Category B - Scattered areas of fibroglandular density Breast density category C or D implies that the patient has dense breast tissue. Dense breast tissue is very common and is not abnormal but dense breast tissue can make it harder to find cancer on a ma mmogram. Also, dense breast tissue may increase their breast cancer risk. This information about the result of the mammogram report was provided to the patient to raise their awareness. Use this report when you speak with the patient about their risks for breast cancer, which includes their family hist ory. At that time, you may recommend for more screening tests (Ultrasound or MRI) as they might be us eful based on their risk. A negative radiographic report should not delay biopsy if a dominant or clinically suspicious mass is present. Up to ten percent of cancers are not identified on mammography. A negative report may reinforce clinical impression. Adenosis and dense breasts may obscure an underlying neoplasm. False positive reports average 6 to 10%. Patient will receive a letter notifying them of these results.
== END 2023-06-08 01:13 ==
LOC: DI 00:53
PROVIDERS: PCP Nurse Practitioner Family; Visit Provider Nurse Practitioner Family
DX: Z12.31 Encounter for screening mammogram for malignant neoplasm of breast (principal)
CPT/HCPCS: 77063; 77067

== ENCOUNTER 2023-06-12 01:48 | Outpatient (CLI) | payer BC, SELFPAY ==
--- NOTE | 2023-06-12 | DI.MAMMO_ITS ---
Exam(s) MAMMO SCREEN CALL BACK UNI US BREAST LT LIMITED EXAM: MAMMO SCREEN CALL BACK UNI CLINICAL HISTORY: F/U MAMMO, EVAL LT NODULE. TECHNIQUE: Craniocaudal and mediolateral oblique spot compression digital Mammography views of the l eftbreast with Tomosynthesis and left breast ultrasound. COMPARISON: [facility] MAMMO SCREENING from 06/08/2023 FINDINGS: Mammography/Tomosynthesis: Masses/Architectural Distortion: Persistent circumscribed nodule seen in the posterior medial aspect of the breast. There is a suggestion of a central fatty hilum this may represent intramammary lymph node. It may be located far posteriorly, anterior to the pectoral muscle on the MLO view. Microcalcifictions: No suspicious pleomorphic-type are seen. Skin Thickening/Nipple Retraction: None. Left breast US: Echotexture: Normal appearance of the glandular tissue. Shadowing: No suspicious foci. Cyst: None. Solid lesions: None seen. Ductal dilation: None. IMPRESSION: 1. No evidence of malignancy is noted. 2. The findings were discussed with the patient on the date of the examination. BI-RADS Category 3 - 6 month - Probably Benign Finding: Recommend follow-up mammography in 6 months Breast Density - Category B - Scattered areas of fibroglandular density A negative radiographic report should not delay biopsy if a dominant or clinically suspicious mass is present. Up to ten percent of cancers are not identified on mammography. A negative report may reinforce clinical impression. Adenosis and dense breasts may obscure an underlying neoplasm. False positive reports average 6 to 10%. Patient will receive a letter notifying them of these results.
== END 2023-06-12 02:08 ==
LOC: DI 01:48
PROVIDERS: PCP Nurse Practitioner Family; Visit Provider Nurse Practitioner Family
DX: Z12.31 Encounter for screening mammogram for malignant neoplasm of breast (principal)
CPT/HCPCS: 76642; 77063; 77067

== ENCOUNTER 2023-09-11 02:47 | Outpatient (CLI) | payer BC, SELFPAY ==
[2023-09-11 14:10] LABS: Abs Immature Grans 0.04 10^3/uL (0.0-0.06); Absolute Basophil Count 0.06 10^3/uL (0.0-0.2); Absolute Eosinophil Count 0.08 10^3/uL (0.0-0.7); Absolute Lymphocyte Count 2.73 10^3/uL (1.2-3.4); Absolute Monocyte Count 0.96 10^3/uL (0.1-0.8); Absolute Neutrophil Count 4.58 10^3/uL (1.2-6.7); Basophils % 0.7; Eosinophils % 0.9; HCT 43.4 % (36.0-46.0); HGB 14.4 g/dL (11.2-15.7); Immature Grans % 0.5; Lymphocytes % 32.3; MCH 30.6 pg (27.0-33.0); MCHC 33.2 % (32.0-36.0); MCV 92 fL (80-95); MPV 10.7 fL (8.0-11.0); Monocytes % 11.4; Neutrophils % 54.2; Platelet Count 255 10^3/uL (130-400); RDW 13.1 % (11.7-14.6); RDW-SD 44.7 fL; WBC 8.45 10^3/uL (4.4-10.8)
[2023-09-11 14:22] LABS: Anion Gap 13.2 mmol/L (3-11); BUN 11 mg/dL (7-18); CO2 25.8 mmol/L (21.0-32.0); CREATININE 0.9 mg/dL (0.55-1.02); Calcium 9.2 mg/dL (8.5-10.1); Chloride 101 mmol/L (98-107); Estimated GFR 79.85 (mL/min/1.73m2); Glucose 98 mg/dL (74-106); Potassium 4.1 mmol/L (3.5-5.1); Sodium 140 mmol/L (136-145)
== END 2023-09-11 02:48 | disposition home or self-care (01) ==
LOC: LBO 02:47
PROVIDERS: Obstetrics & Gynecology; PCP Nurse Practitioner Family; Visit Provider Nurse Practitioner Family
DX: I10 Essential (primary) hypertension (principal); N93.9 Abnormal uterine and vaginal bleeding, unspecified
CPT/HCPCS: 36415; 80048; 85025

== ENCOUNTER → 2023-12-14 01:23 | Outpatient (CLI) | payer BC, SELFPAY ==
--- NOTE | 2023-12-14 14:19 | DI.MAMMO_ITS ---
Exam(s) MAMMO DIAGNOSTIC UNI EXAM: MAMMO DIAGNOSTIC UNI CLINICAL HISTORY: 6 month follow up,r92.8,z09. TECHNIQUE: Craniocaudal and mediolateral oblique Full Field Digital Mammography views of the left br east with Computer Aided Diagnosis followed by Tomosynthesis. COMPARISON: Comparison is made with prior examinations. FINDINGS: Mammography/Tomosynthesis: Masses/Architectural Distortion: There are stable small benign-appearing nodules in the left breast. No new nodules or areas of architectural distortion are seen. Microcalcifictions: No suspicious pleomorphic-type are seen. Skin Thickening/Nipple Retraction: None. IMPRESSION: 1. No evidence of malignancy is noted. 2. Unless there is more urgent need, follow-up screening mammography is recommended, as per [place] [employer] guidelines. 3. The findings were discussed with the patient on the date of the examination. BI-RADS Category 2 - Benign Findings Breast Density - Category B - Scattered areas of fibroglandular density Breast density Category C or D implies that the patient has dense breast tissue. Dense breast tissue can make it harder to find cancer on a mammogram. Dense breast tissue is also associated with an incr eased risk of breast cancer. This information about the result of the mammogram report was provided to the patient to raise their awareness. Use this report when you speak with the patient about their risks for breast cancer, which includes their family history. At that time, you may recommend additional screening tests (Ultrasoun d or MRI) as these tests may add significant information. A negative radiographic report should not delay biopsy if a dominant or clinically suspicious mass is present. Up to ten percent of cancers are not identified on mammography. A negative report may reinforce clinical impression. Adenosis and dense breasts may obscure an underlying neoplasm. False positive reports average 6 to 10%. Patient will receive a letter notifying them of these results.
== END ==
PROVIDERS: PCP Nurse Practitioner Family; Visit Provider Nurse Practitioner Family
DX: R92.8 Other abnormal and inconclusive findings on diagnostic imaging of breast (principal); Z09 Encounter for follow-up examination after completed treatment for conditions other than malignant neoplasm
CPT/HCPCS: 77061; 77065; G0279

== ENCOUNTER 2024-02-22 09:20 | Day surgery (SDC) | payer BC, SELFPAY ==
--- NOTE | 2024-02-21 16:04 | PDOC.DSDIS_ITS ---
Date of service: 02/22/24 Time of Service: 10:53 Discharge Plan Disposition Patient Disposition: Home Condition: Good Discharge Details Reason For Visit: colon cancer screening Attending Provider: Josey Zhao Primary Care Provider: Sera Marcelo Home Meds and New Rx's Prescriptions: Continued Zepbound 2.5 mg/0.5 mL pen injector 2.5 mg subcut QWEEK Qty: 2 0RF Patient Comments: Pt states she has not started taking this yet 02/21/24-RAYNA (MANDIE) Rachel MV Spacer See Rx Instructions .Route Qty: 1 0RF Rx Instructions: As directed losartan 50 mg tablet 50 mg PO DAILY Qty: 90 3RF Discontinued bisacodyl [Dulcolax (bisacodyl)] 5 mg tablet,delayed release (DR/EC) 5 mg PO ONCE Qty: 4 0RF Rx Instructions: Colonoscopy Bowel Prep- Per Instructions polyethylene glycol 3350 17 gram/dose powder 238 g PO ONCE Qty: 238 0RF Rx Instructions: Colonoscopy Bowel Prep- Per Instructions Discharge Instructions Additional Instructions: DSU Colonoscopy Post- Op Instructions Instructions for Everyone who is given Anesthesia: For your safety, please do the following for the next twenty-four (24) hours: *Do Not operate a motor vehicle (car, truck, motorcycle, etc.) *Do Not drink alcoholic beverages or use any recreational drugs for the first 24 hours or while taking pain medications. The medications in your body may have a reaction that can be dangerous. *Do Not make any important decisions or sign any important papers. Findings: normal colon Follow up: 10 yrs time 1. No lifting over 20 pounds or strenuous activity for the first 24 hours after your procedure. After 24 hours there are no restrictions on your activity but you may feel fatigued for a few days. 2. After you arrive home you may have a light meal and return to your normal diet as you can tolerate it without feeling sick to your stomach. 3. You may have a bloated, gaseous feeling in your belly (abdomen) after a colonoscopy. Passing gas and belching will help. Walking or lying down on your left side with your knees flexed may relieve the discomfort. Call the office at [phone] (Office) or [phone] (Hospital) right away if you notice any of the following: a.Vomiting of blood or ?coffee ground stools?. b.Rectal bleeding 1Tbsp, blood clots or continuous bleeding. c.Severe belly (abdominal) pain. d.A hard distended belly (abdomen) and an inability to pass gas. 4. Please don?t expect to have a normal BM (bowel movement) for 2-3 days after your procedure. 5. If there are questions regarding the findings of your procedure, please contact your doctor 6. If you are unable to contact your doctor with a problem, contact the hospital at [phone]. 7. Continue all your regular medications unless directed otherwise. I understand the above instructions and have no questions. Signature of Patient or Adult Escort Name of Responsible Adult Escort Signature of Nurse Date/Time Activity:: see above Diet:: see above Discharge Orders Discharge Orders: Discharge Order (Routine); Ordered 02/22/24 Ordered By: Josey Zhao DS: Diagnosis Discharge Diagnosis (1) Screening for malignant neoplasm of colon performed: Status: Acute Asessment and Plan: The patient is seen and examined after their colonoscopy.? The patient has been able to pass gas.? They are not having abdominal pain.? They have been able to tolerate liquids and a snack.? They do not have any nausea or vomiting.? They are not having any chest pain or shortness of breath.??? They are not having any rectal bleeding. Their vital signs have been stable-see nursing notes. We discussed findings during their colonoscopy, and any biopsies that were done/polyps that were removed. The patient will be sent a letter with any biopsy results, and when to repeat the colonoscopy.-see discharge instructions. Patient was given explicit instructions to follow-up regarding colonoscopy-refer to discharge instructions.? We reviewed resumption of medications. Patient verbalized understanding and discharged in stable and satisfactory condition- See nursing notes. (2) Hypertension: Status: Chronic (3) Hyperlipidemia: Status: Chronic (4) Obesity, Class III, BMI 40-49.9 (morbid obesity): Status: Chronic
--- NOTE | 2024-02-21 16:04 | COLE_ITS ---
Date of service: 02/22/24 Time of Service: 10:54 Colonoscopy Report Date of procedure: 02/22/24 Pre-op diagnosis general: crc screening Post-op diagnosis procedure note: same Surgeon: Josey Zhao Anesthesia Type: General:No Airway Estimated blood loss (mL): 0 Pathology: none sent Complications: None Disposition: same day Prep: Miralax/Dulcolax Findings: 9 Procedure Description: After informed consent was obtained the patient was taken to the procedure room and placed in a left decubitous position. Monitors were applied and a time out was done. The patients name, date of , procedure, allergies to medications and metal in their body was reviewed. The patient was then sedated. Once sedated and comfortable a rectal exam was done. External exam was normal. Internal exam revealed a normal sphincter tone and no palpable masses. The scope was then introduced and retrofelexed. Grade II internal hemorrhoids x1 column were identified. The scope was then advanced to the cecum without difficulty. The TI and appendiceal orifice were identified. The scope was then slowly retracted over 9 minutes back into the rectum. There are no polyps, AVMs, or diverticula visualized today. The mucosa is pink and healthy with a normal vascular pattern. The scope was removed and the patient was woken up and taken back to Same day surgery in stable condition. The patient tolerated the procedure well and there were no immediate complications. Follow up: The patient should follow up in 10 years unless they develop changes in bowel habits or other new gastrointestinal complaints. [place] Bowel Prep [place] Bowel Prep Right Colon: 3 Left Colon: 3 Transverse Colon: 3 Total Score: 9
[2024-02-22 09:30] VITALS: BP 161/94; PULSE 83; RESP 16; TEMP 36.3; O2SAT 96
[2024-02-22] MEDS: Lactated Ringers 1,000 ML 80 ML IV (09:55)
--- NOTE | 2024-02-22 10:05 | W.ANESPRE ---
General Info Date of Service Date Performed: 02/22/24 Height: 5 ft 1.5 in Weight: 107.6 kg Body Mass Index (BMI): 44.1 Surgical Procedure: Operation Date: 02/22/24 10:50 Proposed Procedure Side Surgeon lindsay Zhao, DO Meds Allergies and Home Medications Allergies Allergy/AdvReac Type Severity Reaction Status Date / Time No Known Allergies Allergy Verified 02/22/24 09:40 Home Medication Medication Instructions Recorded losartan 50 mg tablet 50 mg PO DAILY #90 tabs 07/04/23 inhalational spacing device #1 ea 02/05/24 (Aerochamber MV spacer) tirzepatide (weight loss) 2.5 2.5 mg (0.5 mL) subcut QWEEK #2 mL 02/08/24 mg/0.5 mL subcutaneous pen injector (Zepbound) Current Visit Medications: Current Medications Generic Name Dose Route Start Last Admin Trade Name Freq PRN Reason Stop Dose Admin Hyoscyamine Sulfate 0.125 mg 02/22/24 04:02 Hyoscyamine 0.125 Mg Sl/Oral/Chew SL 03/23/24 04:01 DIRECTED PRN Ringer's Solution 1,000 mls @ 80 mls/hr 02/22/24 06:00 02/22/24 09:55 IV 02/22/24 23:59 80 mls/hr INFUSION ROBI Administration IV Miscellaneous Supplies 1 each 02/22/24 06:00 Iv Access IV 02/22/24 23:59 DIRECTED ROBI Ondansetron HCl 4 mg 02/22/24 04:02 Ondansetron 4 Mg/2 Ml Vial IVP 03/23/24 04:01 Q4H PRN PRN Nausea / Vomiting Sodium Chloride 0 ml 02/22/24 06:00 Normal Saline Flush 10 Ml Syr IV 02/22/24 23:59 PRN PRN Sodium Chloride 0 ml 02/22/24 06:00 Normal Saline 10 Ml Vial IJ 02/22/24 23:59 DIRECTED PRN Sterile Water 0 ml 02/22/24 06:00 Water,Injection,Sterile 10 Ml Vial IJ 02/22/24 23:59 DIRECTED PRN PFSH Active Problems Active Problems: Problem Status Onset Code Screening for malignant neoplasm of colon performed Z12.11 Hypertension I10 Hyperlipidemia E78.5 Abnormal uterine bleeding N93.9 Obesity, Class III, BMI 40-49.9 (morbid obesity) E66.01 Lipoma D17.9 Medical History Medical History Mass of right lower leg (~2003) Per records, schwannoma 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 Generalized anxiety disorder Surgical History Surgical History Status post bilateral salpingectomy (11/28/23) S/P laparoscopic hysterectomy (11/28/23) S/P excision of lipoma (06/18/17) Path confirmed lipoma to right buttock Status post hysteroscopy (09/26/17) With endometrial sampling, polypectomy History of bilateral tubal ligation (~2002) Tobacco Smoking/Tobacco Use Status: Never Passive smoking exposure: No Alcohol Alcohol Intake: current Alcohol intake frequency: a few times a week Substance Use Substance use: Never Substance use type: does not use Vital Signs and Lab Results Vital Signs Most Recent Vital Signs in EMR: Most Recent Vital Signs Temp Pulse Resp BP Pulse Ox 36.3 C L 83 16 161/94 H 96 02/22/24 09:30 02/22/24 09:30 02/22/24 09:30 02/22/24 09:30 02/22/24 09:30 Lab Results Blood Type / Crossmatch: No Data to Display Complete Blood Count: No Data to Display Complete Metabolic Panel: No Data to Display Liver Function Panel: No Data to Display Coagulation Panel: No Data to Display Cardiac Panel: No Data to Display Arterial Blood Gas: No Data to Display Venous Blood Gas: No Data to Display Pancreas Panel: No Data to Display Thyroid Panel: No Data to Display Infectious Disease: No Data to Display Blood Cultures: No Data to Display Toxicology Panel: No Data to Display Panel: No Data to Display Anesthesia Assessment and Plan Anesthesia History Personal History: No History of Anesthesia Complications Family History: No Family History of Anesthesia Complications Exercise Tolerance Exercise Tolerance: Metabolic Equivalents>4 Pertinent Negatives Pertinent Negatives: No Symptoms of GERD, No Major Cardiovascular Symptoms or Complaints, No Major Pulmonary Symptoms or Complaints and No History of CVA/TIA Cardiac & Pulmonary Exam Cardiac Exam: Normal S1/S2 Heart Sounds Pulmonary Exam: Clear Bilateral Breath Sounds Cardiac and Pulmonary Comment:: Slight dry cough Implantable Cardiac Device Does patient have a Pacemaker or an ICD?: No Airway Exam Known Difficult Airway: No Mallampati Class: 2 Mouth Opening: Normal (> 3cm) Thyromental Distance: Greater than 3 cm Neck Range of Motion: Full ROM Neck Circumference: Normal Teeth Condition: Normal Dentition and Unable to Assess ASA Classification ASA Score: ASA 3 Emergency Case?: No NPO Status NPO Status: NPO Clears >2 hours, Solids >8 hours Status Status: History of Hysterectomy Anesthesia Plan Resuscitation Status: Full Code Anesthesia Technique: General Anesthesia Airway Planned: Natural Airway Monitors Used: Standard Monitors Preoperative Comments:: Screening colonoscopy, hx of HTN, Obesity
[2024-02-22 10:06] VITALS: BMI 44.1
[2024-02-22 10:44] VITALS: BP 116/48; PULSE 81; RESP 18; TEMP 36.6; O2SAT 95
--- NOTE | 2024-02-22 10:57 | W.ANESPOSTOP ---
Postoperative Evaluation Date, Time and Location Date Performed: 02/22/24 Time Performed: 10:57 Patient Location: Day Surgery Unit Vital Signs Most Recent Imported Vital Signs: Most Recent Vital Signs Temp Pulse Resp BP Pulse Ox 36.6 C 81 18 116/48 L 95 02/22/24 10:44 02/22/24 10:44 02/22/24 10:44 02/22/24 10:44 02/22/24 10:44 Pain Score Most Recent Pain Score: Most Recent Pain Score Pain Level 0 02/22/24 10:44 Assessment Mental Status: Awake (Alert & Oriented to Patient Baseline) Airway and Respiratory Function: Patent airway with normal (patient baseline) respiratory exam Cardiovascular Function: Hemodynamically Stable Hydration Status: Adequately Hydrated Nausea & Vomiting: No Nausea or Vomiting Pain: Pt. Denies Any Pain Peripheral Nerve Block: Patient did not receive a nerve block
[2024-02-22 11:14] VITALS: BP 129/88; PULSE 77; RESP 18; TEMP 36.6; O2SAT 96
== END 2024-02-22 11:30 | disposition home or self-care (01) ==
PROVIDERS: PCP Nurse Practitioner Family; Visit Provider Surgery
PROC: 0DJD8ZZ Inspection of Lower Intestinal Tract, Via Natural or Artificial Opening Endoscopic (ICD-10-PCS; CPT 45378; principal; 2024-02-22 10:45)
DX: Z12.11 Encounter for screening for malignant neoplasm of colon (principal); I10 Essential (primary) hypertension; E78.5 Hyperlipidemia, unspecified; E66.01 Morbid (severe) obesity due to excess calories
CPT/HCPCS: 45378; J2001; J2704

== ENCOUNTER 2024-05-27 17:30 | Outpatient (CLI) | payer BC, SELFPAY ==
--- NOTE | 2024-05-27 17:30 | RT.EKG_ITS ---
APPROVED REPORT Exam: Resting ECG Reason for Exam: chest discomfort Patient Location: O HR:77 bpm ECG Measurements Heart Rate 77 AXIS NJ 156 P 38 QRSd 98 QRS 43 QT 393 T 18 QTc 445 Conclusion Sinus rhythm...normal P axis, V-rate 50- 99 Normal Electrocardiogram
== END 2024-05-27 17:31 | disposition home or self-care (01) ==
LOC: DI.CM 17:30
PROVIDERS: PCP Nurse Practitioner Family; Visit Provider Nurse Practitioner Family
DX: R07.89 Other chest pain (principal)
CPT/HCPCS: 93010

== ENCOUNTER 2024-05-27 18:39 | Emergency (ER) | payer BC, SELFPAY ==
[2024-05-27] VITALS (15 sets, daily range): BP systolic 126–162; BP diastolic 61–101; PULSE 73–95; RESP 12–31; TEMP 36.6; O2SAT 94–97
--- NOTE | 2024-05-27 18:45 | RT.EKG_ITS ---
APPROVED REPORT Exam: Resting ECG Reason for Exam: dizziness Patient Location: E HR:88 bpm ECG Measurements Heart Rate 88 AXIS TN 158 P 42 QRSd 91 QRS 12 QT 371 T 33 QTc 450 Conclusion Sinus rhythm at a rate of 88 without acute ischemic change with normal intervals.
[2024-05-27 19:30] LABS: Abs Immature Grans 0.02 10^3/uL (0.0-0.06); Absolute Basophil Count 0.03 10^3/uL (0.0-0.2); Absolute Lymphocyte Count 3.07 10^3/uL (1.2-3.4); Absolute Monocyte Count 0.66 10^3/uL (0.1-0.8); Absolute Neutrophil Count 3.64 10^3/uL (1.2-6.7); Basophils % 0.4 %; Eosinophils % 1.3 %; HCT 43.1 % (36.0-46.0); HGB 14.7 g/dL (11.2-15.7); Immature Grans % 0.3 %; Lymphocytes % 40.8 %; MCHC 34.1 % (32.0-36.0); MCV 94 fL (80-95); MPV 10.5 fL (8.0-11.0); Monocytes % 8.8 %; Neutrophils % 48.4 %; Platelet Count 196 10^3/uL (130-400); RDW 12.4 % (11.7-14.6); RDW-SD 42.7 fL; WBC 7.52 10^3/uL (4.4-10.8)
[2024-05-27 19:40] LABS: Lipase 53 U/L (16-77)
--- NOTE | 2024-05-27 19:45 | DI.CT_ITS ---
Exam(s) CT BRAIN NECK CTA EXAM: CT BRAIN NECK CTA CLINICAL HISTORY: headache, pulsation, dizzy. TECHNIQUE: Imaging Protocol: Axial CT angiography was performed with multi-slice acquisition and mu lti-planar and/or 3D reconstructions. CONTRAST MATERIAL: Intravenous: Omnipaque 350 Contrast volume:85 ml COMPARISON: CT CT HEAD WO from 10/30/2018 FINDINGS: CTA Neck W: Aortic arch anatomy: The aortic arch anatomy is conventional and there is no significant stenosis at the origin of the great vessels off of the aortic arch. No intimal flap evident. Anterior circulation: Both common carotid arteries ascend with normal luminal diameters. At the level the carotid bulbs and proximal internal carotid arteries there is minimal plaque without hemodynamically significant stenosis evident. Posterior circulation: Both vertebral arteries originate in conventional fashion off of the subclavian arteries and there is no obvious stenosis at the origin of the vertebral arteries. Both vertebral arteries exhibit normal luminal diameters within the foramen transversarium. Left vertebral artery is dominant Both vertebral arteries contribute to the formation of the basilar artery at the skull base. CTA Brain W: Anterior circulation: Both internal carotid arteries are patent in the skull base-carotid canals as well as within the cave rnous sinuses. The supraclinoid aspects of the ICAs are patent. Both A1 segments are patent as are the anterior cer ebral arteries and there is no evidence of aneurysm at the level of the anterior communicating artery . Both middle cerebral arteries are patent with no evidence of significant stenosis nor intraluminal th rombus. There also no aneurysms of these vessels. Posterior circulation: The basilar artery ascends in the midline. Distally it gives off patent bilateral superior cerebella r arteries. Above this level the basilar artery terminates as patent bilateral posterior cerebral arteries. There is no evidence of aneurysm at the tip of the basilar artery nor elsewhere in the [id number] is. CT BRAIN: There is no evidence of intracranial hemorrhage, mass effect, or shift of midline structures. There are no extra-axial fluid collections. Ventricles are not enlarged or shifted. There are no ring enh ancing lesions in the brain and no abnormal meningeal enhancement. IMPRESSION: 1. Patent carotid arteries in the neck. No hemodynamically significant stenosis. 2. Patent vertebral arteries. 3. Patent intracranial arteries. 4. No acute intracranial findings. No evidence of intracranial hemorrhage. No ring enhancing lesion s in the brain nor abnormal meningeal enhancement. RADIATION DOSE DELIVERED: 2,215.47mGy.cm Total DLP DATA REPOSITORY: All CT scans at this facility are submitted to the National Radiology Data Registry (NRDR) Dose Index Registry (DIR) with the [employer] (ACR). RADIATION OPTIMIZATION: All CT scans at this facility use at least one of these dose optimization te chniques: automated exposure control; mA and/or kV adjustment per patient size (includes targeted exa ms where dose is matched to clinical indication); or iterative reconstruction.
[2024-05-27 19:49] LABS: ALT 58 U/L (14-59); AST 36 U/L (15-37); Alkaline Phosphatase 61 U/L (46-116); Anion Gap 10.9 mmol/L (3-11); BUN 8 mg/dL (7-18); Bilirubin, Total 0.85 mg/dL (0.2-1.0); CO2 25.1 mmol/L (21.0-32.0); CREATININE 0.6 mg/dL (0.55-1.02); Calcium 8.8 mg/dL (8.5-10.1); Chloride 101 mmol/L (98-107); Estimated GFR 112.04 (mL/min/1.73m2); Glucose 97 mg/dL (74-106); Magnesium 1.7 mg/dL (1.8-2.4); Potassium 4.3 mmol/L (3.5-5.1); Sodium 137 mmol/L (136-145); Total Protein 7.7 g/dL (6.4-8.2); Troponin I < 50 ng/L (< or =60)
[2024-05-27 19:50] LABS: HCG Qual (Serum) Negative
[2024-05-27 20:15] LABS: Bilirubin Negative (Negative); Blood Negative (Negative); Clarity Clear (Clear); Glucose Negative (Negative); Ketones Negative (Negative); Leukocyte Esterase Negative (Negative); Nitrite Negative (Negative); Urobilinogen 0.2 mg/dL (Up to 0.2); pH 6.5 (5-8)
[2024-05-27] MEDS: Normal Saline Flush 10 ML SYR IVP (20:26)
[2024-05-27] MEDS: Normal Saline - Diluent 50 ML VIAL IJ (20:26)
[2024-05-27] MEDS: Omnipaque 350 MG/ML 100 ML BTL 85 ML IJ (20:27)
--- NOTE | 2024-05-27 21:04 | DI.VRAD_ITS ---
PROCEDURE INFORMATION: Exam: CTA Head Without And With Contrast, Arteriography Exam date and time: 05/27/2024 8:31 PM Age: 48 years old Clinical indication: Other: Headache, pulsation, dizzy TECHNIQUE: Imaging protocol: Computed tomographic angiography of the head without and with contrast. Exam focused on the arteries. 3D rendering (Not supervised by radiologist): MIP and/or 3D reconstructed images were created by the technologist. Contrast material: OMNIPAQUE; Contrast volume: 85 ml; Contrast route: INTRAVENOUS (IV); COMPARISON: CT HEAD WO 10/30/2018 10:12 PM FINDINGS: ANTERIOR CIRCULATION: Right internal carotid artery: Intracranial segment is patent with no significant stenosis or occlusion. No aneurysm. Right middle cerebral artery: No occlusion or significant stenosis. No aneurysm. Right anterior cerebral artery: No occlusion or significant stenosis. No aneurysm. Left internal carotid artery: Intracranial segment is patent with no significant stenosis. No aneurysm. Left middle cerebral artery: No occlusion or significant stenosis. No aneurysm. Left anterior cerebral artery: No occlusion or significant stenosis. No aneurysm. POSTERIOR CIRCULATION: Right vertebral artery: No occlusion or significant stenosis. No aneurysm. Left vertebral artery: No occlusion or significant stenosis. No aneurysm. Basilar artery: No occlusion or significant stenosis. No aneurysm. Right posterior cerebral artery: No occlusion or significant stenosis. No aneurysm. Left posterior cerebral artery: No occlusion or significant stenosis. No aneurysm. HEAD: Brain: Normal. No hemorrhage. Unremarkable white matter. No mass effect. Cerebral ventricles: Normal. No ventriculomegaly. Bones: Unremarkable. No acute fracture. Paranasal sinuses: Visualized sinuses are normal. No fluid levels. Mastoid air cells: Visualized mastoids are normal. No mastoid effusion. Soft tissues: Unremarkable. IMPRESSION: 1. No large vessel occlusion. 2. Unremarkable CT head. PROCEDURE INFORMATION: Exam: CTA Neck Without And With Contrast Exam date and time: 05/27/2024 8:31 PM Age: 48 years old Clinical indication: Other: Headache, pulsation, dizzy TECHNIQUE: Imaging protocol: Computed tomographic angiography of the neck without and with contrast. Exam focused on the cervical segments of the vasculature. 3D rendering (Not supervised by radiologist): MIP and/or 3D reconstructed images were created by the technologist. Contrast material: OMNIPAQUE; Contrast volume: 85 ml; Contrast route: INTRAVENOUS (IV); COMPARISON: CT neck w 10/31/2018 4:16 AM FINDINGS: Right common carotid artery: No stenosis. No dissection or occlusion. Right internal carotid artery: No stenosis of the extracranial segment. No dissection or occlusion. Right external carotid artery: No occlusion or stenosis of the origin. Left common carotid artery: No stenosis. No dissection or occlusion. Left internal carotid artery: No stenosis of the extracranial segment. No dissection or occlusion. Left external carotid artery: No occlusion or stenosis of the origin. Right vertebral artery: No stenosis. No dissection or occlusion. Left vertebral artery: No stenosis. No dissection or occlusion. Soft tissues: Normal. No significant soft tissue swelling. Bones/joints: No acute fracture. IMPRESSION: No stenosis or occlusion. REFERENCES: NASCET CRITERIA. The degree of stenosis in the cervical segment of the internal carotid artery is based on NASCET criteria. Normal is no stenosis. Mild is less than 50% stenosis. Moderate is 50-69% stenosis. Severe is 70% to 99% stenosis. Total occlusion is no detectable patent lumen. Dictated and Authenticated by: Nickolas Winter MD. Ordering:CHEMA Cueva MD
--- NOTE | 2024-05-27 21:27 | ED.GENADUL_ITS ---
Discharge Plan Disposition Patient Disposition: Home Condition: Stable Discharge Details Clinical Impression: Headache, Light-headed feeling Primary Care Provider: Sera Marcelo ED Provider: Anay Bautista Home Meds and New Rx's Prescriptions: New metoclopramide HCl [Reglan] 5 mg tablet 5 mg PO QAC Qty: 10 0RF Rx Instructions: administer 30 minutes before meals meclizine 25 mg tablet 25 mg PO TID Qty: 10 0RF Continued Zepbound 2.5 mg/0.5 mL pen injector 2.5 mg subcut QWEEK Qty: 2 0RF Patient Comments: Pt states she has not started taking this yet 02/21/24-JW (DME) Aerochamber MV Spacer See Rx Instructions .Route Qty: 1 0RF Rx Instructions: As directed losartan 50 mg tablet 50 mg PO DAILY Qty: 90 3RF Discharge Instructions Instructions: Dizziness, Adult ED Additional Instructions: you may try meclizine or Reglan as needed for lightheadedness. Reglan may help with lightheadedness and headache. At least eight 8 ounce glasses of water daily Reglan and meclizine, both make you slightly tired, see how you feel while taking them Please be reassessed by your primary care physician in 48 to 72 hours Return earlier should you have new or worsening complaints Referrals: Sera Marcelo, SHONNA [Primary Care Provider] - 2 days Discharge Data Discharge Date/Time-TO BE ENTERED AT DEPARTURE: 05/27/24 22:16 HPI General Date/Time Provider Initiated Documentation: 05/27/24 19:22 . HPI Narrative: This 48-year-old female with history of hypertension presents with report of lightheadedness, headaches, and feeling off for the past several days. Sent by urgent care for assessment. Denies any chest pain or shortness of breath. Denies any nausea or vomiting. Denies prior history of headaches. Did just move into a new house and has been under some stress per patient. Denies any falls or head injury. Describes her headache as a pressure sensation per patient. Related Data Home Medications ?Medication ?Instructions ?Recorded ?Confirmed losartan 50 mg tablet 50 mg PO DAILY #90 tabs 07/04/23 05/27/24 inhalational spacing device #1 ea 02/05/24 05/27/24 (Aerochamber MV spacer) tirzepatide (weight loss) 2.5 2.5 mg (0.5 mL) subcut QWEEK #2 mL 02/08/24 05/27/24 mg/0.5 mL subcutaneous pen injector (Zepbound) meclizine 25 mg tablet 25 mg PO TID #10 tabs 05/27/24 metoclopramide HCl 5 mg tablet 5 mg PO QAC #10 tabs 05/27/24 (Reglan) Previous Rx's ?Medication ?Instructions ?Recorded losartan 50 mg tablet 50 mg PO DAILY #90 tabs 07/04/23 inhalational spacing device #1 ea 02/05/24 (Aerochamber MV spacer) tirzepatide (weight loss) 2.5 2.5 mg (0.5 mL) subcut QWEEK #2 mL 02/08/24 mg/0.5 mL subcutaneous pen injector (Zepbound) meclizine 25 mg tablet 25 mg PO TID #10 tabs 05/27/24 metoclopramide HCl 5 mg tablet 5 mg PO QAC #10 tabs 05/27/24 (Reglan) Allergies Allergy/AdvReac Type Severity Reaction Status Date / Time No Known Allergies Allergy Verified 05/27/24 19:46 General Stated Complaint: Dizzy/Sync BALBIR: 3 Exam Narrative Exam Narrative: Alert, oriented, no acute distress, pupils equal round reactive to light and accommodation, no carotid bruit, extraocular muscles intact, cardiac rate rhythm regular, lungs clear to auscultation, cranial nerves II through intact, ambul atory steady gait, negative [id number]-lnni-[id number], negative heel jennings, strength and sensation intact distally to all 4 extremities. Course Vital Signs Vital signs: Vital Signs Temperature 36.6 C 05/27/24 18:50 Pulse 88 05/27/24 18:50 Respiratory Rate 16 05/27/24 18:50 Blood Pressure 153/101 H 05/27/24 18:50 Temperature 36.6 C 05/27/24 18:50 Temperature Source Temporal Artery Scan 05/27/24 18:50 Pulse 88 05/27/24 18:50 Respiratory Rate 14 05/27/24 19:46 Respiratory Effort Normal 05/27/24 19:46 Respiratory Depth Normal 05/27/24 19:46 Respiratory Pattern Normal 05/27/24 19:46 Blood Pressure 153/101 H 05/27/24 18:50 Blood Pressure Position Sitting 05/27/24 18:50 Oxygen Delivery Method Room Air 05/27/24 18:50 Oxygen Flow Rate 0 05/27/24 18:50 Pain Level 0 05/27/24 19:46 Lab/Test Results Lab/Test Results: Laboratory Tests Range/Units 05/27/24 05/27/24 19:22 20:06 WBC (4.4-10.8) 10^3/uL 7.52 RBC (3.93-5.22) 10^6/uL 4.60 Hgb (11.2-15.7) g/dL 14.7 Hct (36.0-46.0) % 43.1 MCV (80-95) fL 94 MCH (27.0-33.0) pg 32.0 MCHC (32.0-36.0) % 34.1 RDW (11.7-14.6) % 12.4 Plt Count (130-400) 10^3/uL 196 MPV (8.0-11.0) fL 10.5 Immature Gran % % 0.3 Neutrophils % % 48.4 Lymphocytes % % 40.8 Monocytes % % 8.8 Eosinophils % % 1.3 Basophils % % 0.4 Nucleated RBC % (0.0-0.3) % 0.0 Absolute Neutrophils (1.2-6.7) 10^3/uL 3.64 Absolute Lymphocytes (1.2-3.4) 10^3/uL 3.07 Absolute Monocytes (0.1-0.8) 10^3/uL 0.66 Absolute Eosinophils (0.0-0.7) 10^3/uL 0.10 Absolute Basophils (0.0-0.2) 10^3/uL 0.03 Sodium (136-145) mmol/L 137 Potassium (3.5-5.1) mmol/L 4.3 Chloride (98-107) mmol/L 101 Carbon Dioxide (21.0-32.0) mmol/L 25.1 Anion Gap (3-11) mmol/L 10.9 BUN (7-18) mg/dL 8 Creatinine (0.55-1.02) mg/dL 0.6 Est GFR (CKD-EPI 2020) (mL/min/1.73m2) 112.04 Glucose (74-106) mg/dL 97 Calcium (8.5-10.1) mg/dL 8.8 Magnesium (1.8-2.4) mg/dL 1.7 L Total Bilirubin (0.2-1.0) mg/dL 0.85 AST (15-37) U/L 36 ALT (14-59) U/L 58 Alkaline Phosphatase (46-116) U/L 61 Troponin I (< or =60) ng/L < 50 Total Protein (6.4-8.2) g/dL 7.7 Albumin (3.4-5.0) g/dL 4.0 Lipase (16-77) U/L 53 Serum HCG, Qual Negative Urine Color (Yellow) Yellow Urine Clarity (Clear) Clear Urine pH (5-8) 6.5 Ur Specific [place] (1.005-1.025) 1.010 Urine Protein (Neg-Trace) mg/dL Negative Urine Ketones (Negative) mg/dL Negative Urine Blood (Negative) Negative Urine Nitrite (Negative) Negative Urine Bilirubin (Negative) Negative Urine Urobilinogen (Up to 0.2) mg/dL 0.2 Ur Leukocyte Esterase (Negative) Negative Urine Glucose (Negative) mg/dL Negative Medical Decision Making 48-year-old female in no acute distress presenting with vague complaints, however with lightheadedness and headaches with constant pressure in head, I did order CTA head and neck per radiology interpretation my review does not show evidence of acute abnormality. Diagnostic labs including troponin were negative for acute abnormality, magnesium slightly low will take supplement at home. EKG without evidence of ischemia or injury, please see attendings sign mentation. At this time patient's received 2 L of NS, she is feeling marked improvement in symptoms. She may have vertiginous component to her symptoms however they have resolved with fluids so unlikely, made aware that she can try performing Katy maneuver at home should her symptoms return patient prescribed antiemetics should she need them. Low suspicion clinically for cardiac etiology of patient's complaints. Again CTA was reassuring. Follow-up with PCP recommended this week and hydration encouraged. 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 Sister No problems noted. Brother No problems noted. Daughter Endometriosis Daughter No problems noted. Daughter No problems noted. Maternal Grandfather No problems noted. Maternal Grandmother No problems noted. Paternal Grandfather No problems noted. Paternal Grandmother No problems noted. Social History (Updated 02/13/24 @ 14:19 by HERNAN Benitez) Smoking/Tobacco Use Status: Never Smoking risk assessment performed?: Yes Alcohol Intake: current Alcohol Intake frequency: a few times a week Drug use: Never Substance use type: does not use Housing: house Do you feel safe at home: Yes Do you feel safe in your relationship?: Yes Female Reproductive History Menstrual control method: permanent sterilization
[2024-05-27] MEDS: ACETAMINOPHEN 1,000 MG/100 ML BTL 400 MG IVPB (21:31)
[2024-05-27] MEDS: Metoclopramide 10 MG/2 ML VIAL 5 MG IVP (21:32)
[2024-05-27] MEDS: Normal Saline 1,000 ML 1000 ML IV (21:32)
== END 2024-05-27 22:16 | disposition home or self-care (01) ==
PROVIDERS: Emergency Provider Physician Assistant; PCP Nurse Practitioner Family
DX: R42 Dizziness and giddiness (principal); I10 Essential (primary) hypertension; R51.9 Headache, unspecified
CPT/HCPCS: 36415; 70496; 70498; 80053; 83690; 93005; 96365; 99285; 81003; 83735; 84484; 84703; 85025; 93010; 99284; J0131; J2765; J3490

== ENCOUNTER → 2025-10-20 00:24 | Outpatient (CLI) | payer BC, SELFPAY ==
--- NOTE | 2025-10-20 07:00 | DI.US_ITS ---
Exam(s) US BREAST RT COMPLETE MG MAMMO DIAGNOSTIC BI EXAM: MG MAMMO DIAGNOSTIC BI CLINICAL HISTORY: nipple discharge in right breast, family h/o breast ca,n64.52. COMPARISON: MG MG MAMMO SCREEN CALL BACK UNI from 06/12/2023 US US BREAST LT LIMITED from 06/12/2023 MG MG MAMMO DIAGNOSTIC UNI from 12/14/2023 US US BREAST RT COMPLETE from 10/20/2025 TECHNIQUE: Craniocaudal and mediolateral oblique Full Field Digital Mammography views of with Computer Aided Diagnosis followed by Tomosynthesis and breast ultrasound. FINDINGS: Mammography/Tomosynthesis: Masses: None seen. Architectural Distortion: None seen. Microcalcifications: No suspicious pleomorphic-type are seen. Skin Thickening/Nipple Retraction: None. Left breast US: Echotexture: Normal appearance of the glandular tissue. Shadowing: No suspicious foci. Cyst: None. Solid lesions: None seen. Ductal dilation: None. IMPRESSION: 1. No evidence of malignancy is noted. 2. Unless there is more urgent need, follow-up screening mammography is recommended, as per [place] [employer] guidelines. BI-RADS Category 1 - Negative Breast Density - Category B - There are scattered areas of fibroglandular density. Breast density Category C or D implies that the patient has dense breast tissue. Dense breast tissue can make it harder to find cancer on a mammogram. Dense breast tissue is also associated with an increased risk of breast cancer. This information about the result of the mammogram report was provided to the patient to raise their awareness. Use this report when you speak with the patient about their risks for breast cancer, which includes their family history. At that time, you may recommend additional screening tests (Ultrasound or MRI) as these tests may add significant information. A negative radiographic report should not delay biopsy if a dominant or clinically suspicious mass is present. Up to ten percent of cancers are not identified on mammography. A negative report may reinforce clinical impression. Adenosis and dense breasts may obscure an underlying neoplasm. False positive reports average 6 to 10%. Patient will receive a letter notifying them of these results.
== END ==
LOC: DI 00:24
PROVIDERS: PCP Nurse Practitioner Family; Visit Provider Nurse Practitioner Family
DX: N64.52 Nipple discharge (principal); Z80.3 Family history of malignant neoplasm of breast
CPT/HCPCS: 76642; 77062; 77066; G0279